=== PATIENT | female | born 1955 | race Caucasian/White ===

== ENCOUNTER 2017-02-09 09:21 | Emergency (ER) | payer OTHER ==
[2017-02-09 09:57] VITALS: BP 155/79
--- NOTE | 2017-02-09 10:28 | UC ---
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 mild swelling over the rigth 5th metatarsal, otherwise no deformity, hard to ambulate or drive. - History of Current Complaint Chief Complaint: UCLowerExtremity Stated Complaint: RT FOOT/LEG PAIN Time Seen by Provider: 02/09/17 10:10 Hx Obtained From: Patient ?: No Onset/Duration: Sudden Onset, Lasting Weeks Severity Initially: Moderate Severity Currently: Severe Aggravating Factor(s): Standing, Ambulation Alleviating Factor(s): Rest Able to Bear Weight: Yes - gait is abnormal - Risk Factors Gout Risk Factors: Negative DVT Risk Factors: Negative - Allergies/Home Medications Allergies/Adverse Reactions: Allergies Allergy/AdvReac Type Severity Reaction Status Date / Time Albuterol Allergy Severe Anaphylatic Verified 02/09/17 09:45 Shock Codeine Allergy Severe Anaphylatic Verified 02/09/17 09:45 Shock Home Medications: Home Medications Aspirin [Aspirin 81 MG TAB] 81 mg PO DAILY 02/09/17 [History Confirmed 02/09/17] Fluticas/Salmet 230/21 HFA(NF) [Advair HFA 23O/21 (NF)] 2 puff INH DAILY [History Confirmed 02/09/17] Ibuprofen TAB* [Advil TAB*] 200 mg PO Q6H PRN 02/09/17 [History Confirmed ] Smoking Cessation Pill 1 tab PO DAILY 02/09/17 [History] PMH/Surg Hx/FS Hx/Imm Hx Previously Healthy: Yes Cardiovascular History Of: Reports: Cardiac Disorders - [facility] Respiratory History Of: Reports: Asthma - Surgical History Surgical History: Yes Surgery Procedure, Year, and Place: TUBAL LIGATION - Family History Known Family History: Positive: Hypertension - Social History Alcohol Use: Rare Substance Use Type: None Smoking Status (MU): Heavy Every Day Tobacco Smoker Type: Cigarettes Amount Used/How Often: 1/2 PPD Household Exposure Type: Cigarettes Review of Systems Constitutional: Negative Skin: Negative Eyes: Negative ENT: Negative Respiratory: Negative Cardiovascular: Negative Gastrointestinal: Negative Genitourinary: Negative Motor: Negative Neurovascular: Negative Musculoskeletal: Arthralgia, Decreased ROM, Edema, Myalgia Neurological: Negative Psychological: Negative All Other Systems Reviewed And Are Negative: Yes Physical Exam Triage Information Reviewed: Yes Appearance: Well-Appearing, Well-Nourished, Pain Distress Vital Signs: Initial Vital Signs Temp 99 F 02/09/17 09:47 Pulse 71 02/09/17 09:47 Resp 18 02/09/17 09:47 BP 155/79 02/09/17 09:47 Pulse Ox 96 02/09/17 09:47 Vital Signs Reviewed: Yes Eye Exam: Normal Eyes: Positive: Conjunctiva Clear ENT: Positive: Hearing grossly normal, Pharynx normal, TMs normal Dental Exam: Normal Neck exam: Normal Neck: Positive: Supple, Nontender, No Lymphadenopathy Respiratory Exam: Normal Respiratory: Positive: Chest non-tender, Lungs clear, Normal breath sounds Cardiovascular Exam: Normal Cardiovascular: Positive: RRR, No Murmur, Pulses Normal Abdominal Exam: Normal Abdomen Description: Positive: Nontender, No Organomegaly, Soft Bowel Sounds: Positive: Present Musculoskeletal: Positive: Strength Limited @ - in weight bearing on right ankle ROM is limited in all directions in right ankle. mild edema at proximal end of 5th metatarsal Neurological Exam: Normal Psychological Exam: Normal Skin Exam: Normal Lower Extremity Course/Dx - Course Course Of Treatment: hx obtained, exam performed, meds reviewed, xray obtained, - Differential Dx/Diagnosis Differential Diagnosis/HQI/PQRI: Bursitis, Cellulitis, Contusion, Dislocation, Sprain, Strain, Tendonitis Provider Diagnoses: right peroneal strain. right ankle pain Discharge - Discharge Plan Condition: Stable Disposition: HOME Patient Education Materials: Muscle Strain (ED) Forms: *Work Release Referrals: NIGHAT Zhou [Primary Care Provider] - Additional Instructions: 1. give your ankle a good rest for the next 25 hours. 2. use the marissa and splint for support. soak foot and leg 2-3 times daily or use a heating pad, then being mild stretching in the pain free range of motion. 3. Follow up if not improving. 4. Advil for reduction of inflammation
--- NOTE | 2017-02-09 10:59 | RAD ---
INDICATION: Lateral ankle pain COMPARISON: None TECHNIQUE: AP, lateral, and oblique views were obtained. FINDINGS: The bony structures, joint spaces, and soft tissues are normal for age. IMPRESSION: NEGATIVE EXAMINATION.
== END 2017-02-09 11:17 | disposition home or self-care (01) ==
LOC: UCCORT 09:21
DX: S96.911A Strain of unspecified muscle and tendon at ankle and foot level, right foot, initial encounter (principal); X58.XXXA Exposure to other specified factors, initial encounter; Y93.9 Activity, unspecified; Y92.9 Unspecified place or not applicable; M25.571 Pain in right ankle and joints of right foot; R01.1 Cardiac murmur, unspecified; J45.909 Unspecified asthma, uncomplicated; Z88.5 Allergy status to narcotic agent; Z88.8 Allergy status to other drugs, medicaments and biological substances; F17.210 Nicotine dependence, cigarettes, uncomplicated
CPT/HCPCS: 99203; G0463

== ENCOUNTER 2017-05-04 12:28 | Emergency (ER) | payer BC, MEDICARE ==
[2017-05-04 12:41] VITALS: BP 130/109
--- NOTE | 2017-05-04 12:49 | UC ---
Abdominal Pain Female HPI - HPI Summary HPI Summary: 61 yo female with a three day hx of rlq abd pain n/v anorexia mild back pain no fever some light headedness some blood in emesis hx kidney stone right side MAR admitted to [facility] hx BTL - History of Current Complaint Chief Complaint: UCAbdominalPain Stated Complaint: LOWER ABDOMINAL/SIDE PAIN VOMITING BLOOD DIZZY Time Seen by Provider: 05/04/17 12:35 Onset/Duration: Gradual Onset, Lasting Days Timing: Constant Severity Initially: Severe Severity Currently: Severe Pain Intensity: 10 Pain Scale Used: 0-10 Numeric Location: Discrete At: RLQ Radiates: No Character: Sharp Aggravating Factor(s): Food, Movement Alleviating Factor(s): Nothing Associated Signs and Symptoms: Positive: Diaphoresis, Back Pain, Decreased Appetite, Nausea, Vomiting Allergies/Adverse Reactions: Allergies Allergy/AdvReac Type Severity Reaction Status Date / Time Albuterol Allergy Severe Anaphylatic Verified 05/04/17 12:42 Shock Codeine Allergy Severe Anaphylatic Verified 05/04/17 12:42 Shock PMH/Surg Hx/FS Hx/Imm Hx Previously Healthy: Yes Respiratory History: COPD, Asthma GI/ History: Kidney Stones - Surgical History Surgical History: Yes Surgery Procedure, Year, and Place: TUBAL LIGATION - Family History Known Family History: Positive: Hypertension - Social History Alcohol Use: Rare Substance Use Type: None Smoking Status (MU): Heavy Every Day Tobacco Smoker Type: Cigarettes Amount Used/How Often: 1ppd Length of Time of Smoking/Using Tobacco: since age 42 Household Exposure Type: Cigarettes Review of Systems Constitutional: Negative Skin: Negative Eyes: Negative ENT: Negative Respiratory: Negative Cardiovascular: Negative Gastrointestinal: Abdominal Pain, Vomiting, Nausea Genitourinary: Negative Motor: Negative Neurovascular: Negative Musculoskeletal: Negative Neurological: Negative Psychological: Negative All Other Systems Reviewed And Are Negative: Yes Physical Exam Triage Information Reviewed: Yes Appearance: Well-Appearing, Well-Nourished, Pain Distress Vital Signs: Initial Vital Signs Temp 99.3 F 05/04/17 12:37 Pulse 89 05/04/17 12:37 Resp 20 05/04/17 12:37 BP 130/109 05/04/17 12:37 Pulse Ox 95 05/04/17 12:37 Vital Signs Reviewed: Yes Eyes: Positive: Conjunctiva Clear ENT: Positive: Hearing grossly normal. Negative: Nasal congestion, Nasal drainage, Tonsillar exudate, Trismus, Muffled/hoarse voice Neck: Positive: Supple, Nontender, No Lymphadenopathy Respiratory: Positive: Lungs clear, Normal breath sounds, No respiratory distress, No accessory muscle use Cardiovascular: Positive: RRR Abdomen Description: Positive: Soft, CVA Tenderness (R) - minimal. Negative: Nontender - markedley tender RLQ>RUQ Bowel Sounds: Positive: Hypoactive Musculoskeletal: Positive: ROM Intact, No Edema Neurological: Positive: Alert Psychological Exam: Normal Skin Exam: Normal Abd Pain Female Course/Dx - Course Course Of Treatment: DECLINES IV ANALAGESIC AND ANTIEMETIC WELL EMS TRANSFER. desires to go to [facility] by POV. d/w Dr Gu - Differential Dx/Diagnosis Provider Diagnoses: Abd pain of uncertain cause. hematemesis by history Discharge - Discharge Plan Condition: Guarded Disposition: AGAINST MEDICAL ADVICE
== END 2017-05-04 13:04 | disposition left against medical advice (07) ==
LOC: UCCORT 12:28
DX: R10.31 Right lower quadrant pain (principal); K92.0 Hematemesis; R42 Dizziness and giddiness; Z87.442 Personal history of urinary calculi; J44.9 Chronic obstructive pulmonary disease, unspecified; Z88.5 Allergy status to narcotic agent; F17.210 Nicotine dependence, cigarettes, uncomplicated
CPT/HCPCS: 99212; G0463

== ENCOUNTER 2017-09-23 11:21 | Emergency (ER) | payer BC, MEDICARE ==
[2017-09-23 12:00] VITALS: BP 156/91
--- NOTE | 2017-09-23 12:47 | UC ---
Throat Pain/Nasal Fabián HPI - HPI Summary HPI Summary: SINUS PRESSURE PAIN, WHEEZING, AND COUGH FOR TWO WEEK. NO FEVER. HAD BEEN AUGMENTIN A MONTH AGO, SYMPTOMS RETURNED. - History of Current Complaint Chief Complaint: UCRespiratory Stated Complaint: COUGH,CONGESTION,EAR PAIN,ST Time Seen by Provider: 09/23/17 12:00 Hx Obtained From: Patient Onset/Duration: Gradual Onset, Lasting Weeks Severity: Moderate Pain Intensity: 8 Pain Scale Used: 0-10 Numeric Cough: Nonproductive Associated Signs & Symptoms: Positive: Hoarseness, Sinus Discomfort, Nasal Discharge - Epiglottits Risk Factors Epiglottis Risk Factors: Negative - Allergies/Home Medications Allergies/Adverse Reactions: Allergies Allergy/AdvReac Type Severity Reaction Status Date / Time Albuterol Allergy Severe Anaphylatic Verified 09/23/17 11:46 Shock Codeine Allergy Severe Anaphylatic Verified 09/23/17 11:46 Shock Benzonatate [From Tessalon] Allergy Unknown NAUSEA, Verified 09/23/17 11:49 SHAKEY , DIZZY Home Medications: Home Medications Otc Cough Med PRN 09/23/17 [History] PMH/Surg Hx/FS Hx/Imm Hx Previously Healthy: Yes - Surgical History Surgical History: Yes Surgery Procedure, Year, and Place: TUBAL LIGATION. CYST REMOVED FROM LEFT ARM - Family History Known Family History: Positive: Hypertension, Respiratory Disease - Social History Occupation: Employed Full-time Lives: With Family Alcohol Use: None Substance Use Type: None Smoking Status (MU): Heavy Every Day Tobacco Smoker Type: Cigarettes Amount Used/How Often: 1/2 PPD Length of Time of Smoking/Using Tobacco: since age 42 Household Exposure Type: Cigarettes Cessation Counseling: Patient Advised to Stop - Immunization History Most Recent Influenza Vaccination: 2017 Review of Systems Constitutional: Fatigue Skin: Negative ENT: Nasal Discharge, Sinus Congestion, Sinus Pain/Tenderness Respiratory: Cough Cardiovascular: Negative Gastrointestinal: Negative Genitourinary: Negative Motor: Negative Neurovascular: Negative Musculoskeletal: Negative Neurological: Negative Psychological: Negative Is Patient Immunocompromised?: No All Other Systems Reviewed And Are Negative: Yes Physical Exam Triage Information Reviewed: Yes Appearance: No Pain Distress, Well-Nourished, Ill-Appearing Vital Signs: Initial Vital Signs Temp 98.7 F 09/23/17 11:49 Pulse 75 09/23/17 11:49 Resp 20 09/23/17 11:49 BP 156/91 09/23/17 11:49 Pulse Ox 100 09/23/17 11:49 Vital Signs Reviewed: Yes Eye Exam: Normal ENT: Positive: Pharynx normal, Nasal congestion, Nasal drainage, TM bulging, TM dull Dental Exam: Normal Neck exam: Normal Neck: Positive: Supple, Nontender, No Lymphadenopathy Respiratory Exam: Other - COUGH Respiratory: Positive: Chest non-tender, Lungs clear, Normal breath sounds, No respiratory distress, No accessory muscle use Cardiovascular Exam: Normal Cardiovascular: Positive: RRR, No Murmur, Pulses Normal Abdominal Exam: Normal Musculoskeletal Exam: Normal Musculoskeletal: Positive: Strength Intact, ROM Intact Neurological Exam: Normal Psychological Exam: Normal Skin Exam: Normal Throat Pain/Nasal Course/Dx - Differential Dx/Diagnosis Differential Diagnosis/HQI/PQRI: Pharyngitis, Sinusitis, Tonsillitis, URI Provider Diagnoses: SINUSITIS; BRONCHITIS Discharge - Discharge Plan Condition: Stable Disposition: HOME Prescriptions: DOXYcycline CAP(*) [DOXYcycline 100MG CAP(*)] 100 mg PO BID #20 cap Patient Education Materials: Sinusitis (ED), Acute Bronchitis (ED) Forms: *Work Release Referrals: NIGHAT Zhou [Primary Care Provider] - Additional Instructions: IF SYMPTOMS WORSEN PLEASE SEEK IMMEDIATE EVALUATION AT EMERGENCY DEPARTMENT. PLEASE SCHEDULE A FOLLOW UP APPOINTMENT WITH YOUR PRIMARY CARE PROVIDER FOR NEXT WEEK.
== END 2017-09-23 12:27 | disposition home or self-care (01) ==
LOC: UCCORT 11:21
DX: J32.9 Chronic sinusitis, unspecified (principal); J40 Bronchitis, not specified as acute or chronic; Z88.8 Allergy status to other drugs, medicaments and biological substances; F17.210 Nicotine dependence, cigarettes, uncomplicated
CPT/HCPCS: 99212; G0463

== ENCOUNTER 2018-12-25 15:59 | Emergency (ER) | payer OTHER ==
[2018-12-25 16:47] VITALS: BP 144/83
[2018-12-25] MEDS ORDERED: Ketorolac INJ* 30 MG/ML 1 ML VIAL IM ONE (16:55)
--- NOTE | 2018-12-25 17:07 | UC ---
Hip/Pelvis Pain - HPI Summary HPI Summary: 63 yo female with left hip pain x 2 weeks pain localized over greater troch radiates down leg to knee sometime goes down to foot no back or abd pain hurts to walk hurts to lay on left side no f/c no CP or SOB states the pain has been so severe the past 2 days she has had a headache and vomited no nausea - History Of Current Complaint Chief Complaint: UCLowerExtremity Stated Complaint: LEFT LEG CONCERN,VOMITING,HEADACHE Time Seen by Provider: 12/25/18 16:49 Hx Obtained From: Patient Onset/Duration: Gradual Onset, Lasting Weeks, Worse Since - past two days Timing: Constant Severity Initially: Mild Severity Currently: Severe Pain Intensity: 10 Pain Scale Used: 0-10 Numeric Location: Discrete At: - left great troch, Radiates To: - down lat left leg to knee or foot Character Of Pain: Aching, Throbbing, Spasmodic Aggravating Factor(s): Movement, Weight Bearing, Other - laying on left side Alleviating Factor(s): Nothing Associated Signs And Symptoms: Positive: Swelling - at times - Allergies/Home Medications Allergies/Adverse Reactions: Allergies Allergy/AdvReac Type Severity Reaction Status Date / Time albuterol Allergy Anaphylatic Verified 12/25/18 16:38 Shock benzonatate Allergy Nausea, Verified 12/25/18 16:38 shaky, dizzy codeine Allergy Anaphylatic Verified 12/25/18 16:38 Shock PMH/Surg Hx/FS Hx/Imm Hx Previously Healthy: Yes Cardiovascular History: Hypertension - current not on meds Respiratory History: Asthma GI/ History: Kidney Stones - Surgical History Surgical History: Yes Surgery Procedure, Year, and Place: TUBAL LIGATION. CYST REMOVED FROM LEFT ARM - Family History Known Family History: Positive: Hypertension, Respiratory Disease - Social History Alcohol Use: None Substance Use Type: None Smoking Status (MU): Heavy Every Day Tobacco Smoker Type: Cigarettes Amount Used/How Often: 1 Pack per wk Length of Time of Smoking/Using Tobacco: since age 42 Household Exposure Type: Cigarettes - Immunization History Most Recent Influenza Vaccination: 2017 Review of Systems All Other Systems Reviewed And Are Negative: Yes Constitutional: Positive: Negative Skin: Positive: Negative Eyes: Positive: Negative ENT: Positive: Negative Respiratory: Positive: Negative Cardiovascular: Positive: Negative Gastrointestinal: Positive: Vomiting Genitourinary: Positive: Negative Motor: Positive: Negative Neurovascular: Positive: Negative Musculoskeletal: Positive: Arthralgia - left hip Neurological: Positive: Headache Physical Exam Triage Information Reviewed: Yes Appearance: Well-Appearing, No Pain Distress, Well-Nourished Vital Signs: Initial Vital Signs Temp 99.1 F 12/25/18 16:40 Pulse 84 12/25/18 16:40 Resp 16 12/25/18 16:40 BP 144/83 12/25/18 16:40 Pulse Ox 96 12/25/18 16:40 Vital Signs Reviewed: Yes Eyes: Positive: Conjunctiva Clear ENT: Positive: Hearing grossly normal. Negative: Nasal congestion, Nasal drainage, Trismus, Muffled voice, Hoarse voice Neck: Positive: Supple, Nontender, No Lymphadenopathy Respiratory: Positive: Lungs clear, Normal breath sounds, No respiratory distress, No accessory muscle use Cardiovascular: Positive: RRR Abdomen Description: Positive: No Organomegaly. Negative: Bruit, CVA Tenderness (R), CVA Tenderness (L), Distended, Guarding, Hernia @ Bowel Sounds: Positive: Present Musculoskeletal: Positive: ROM Intact, No Edema Neurological: Positive: Alert Psychological Exam: Normal Skin Exam: Normal Diagnostics - Radiology No standard instances Radiology Interpretation Completed By: Radiologist Summary of Radiographic Findings: IMPRESSION: MODERATE TO SEVERE DEGENERATIVE DISC DISEASE AT THE L5-S1 LEVEL. hip ok Hip Injury Course/Dx - Differential Dx/Diagnosis Provider Diagnosis: Left sided sciatica, DDD (degenerative disc disease), lumbosacral Discharge - Sign-Out/Discharge Documenting (check all that apply): Patient Departure All imaging exams completed and their final reports reviewed: No Studies - Discharge Plan Condition: Stable Disposition: HOME Prescriptions: Naproxen [Naprosyn 500 mg tab] 500 mg PO BID PRN #30 tablet PRN Reason: Pain Referrals: No Primary Care Phys,NOPCP [Primary Care Provider] - - Billing Disposition and Condition Condition: STABLE Disposition: Home
== END 2018-12-25 18:28 | disposition home or self-care (01) ==
LOC: UCCORT 15:59
DX: M51.37 Other intervertebral disc degeneration, lumbosacral region (principal); M54.32 Sciatica, left side; R51 Headache; R11.10 Vomiting, unspecified; J45.909 Unspecified asthma, uncomplicated; I10 Essential (primary) hypertension; F17.210 Nicotine dependence, cigarettes, uncomplicated; Z88.8 Allergy status to other drugs, medicaments and biological substances; Z88.5 Allergy status to narcotic agent
CPT/HCPCS: 72110; 96372; 99212; G0463; J1885

== ENCOUNTER 2019-05-25 16:27 | Emergency (ER) | payer OTHER ==
--- OUTSIDE RECORDS SUMMARY | 2019-05-25 16:50 | XMS REPORT | Continuity of Care Document ---
:1955 External Reference #:[id number] Author Name Christian Colón M.D. 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 Onset: 03/07/2019 Essential hypertension Pinky Storey M.D. Onset: 03/07/2019 Perforation and abscess of large intestine Pinky Storey M.D. Onset: 2018 co-occurrent and due to diverticulitis Extended spectrum beta lactamase (Esbl) Pinky Storey M.D. Onset: 03/07/2019 resistance Tobacco user Pinky Storey M.D. Onset: 03/07/2019 Constipation Pinky Storey M.D. Onset: 03/14/2019 Chronic obstructive lung disease Pinky Storey M.D. Onset: 04/18/2019 Dysphagia Pinky Storey M.D. Onset: 04/18/2019 Hemangioma Pinky Storey M.D. 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 [facility] Work Status Currently Working Tobacco Use Start: Unknown currently smokes 1/2 Smoked for 30 years Pack Daily plus Smokeless Tobacco Never Used Smokeless Tobacco ETOH Use Has consumed alcohol in [place] 16 years ago the past Recreational Drug Use Denies Drug Use Tobacco Use Start: Unknown Light tobacco smoker (10 or fewer cigarettes/day) Tobacco Use Start: Unknown Patient is a current smoker, smokes every day Smoking Status Reviewed: 05/09/19 Patient is a current smoker, smokes every day Allergies, Adverse Reactions, Alerts Active Allergies Reaction Severity Comments Date Codeine 11/30/2016 Albendazole 11/30/2016 Albuterol "I can't breath" 02/19/2019 Medications Active Medications SIG Qnty Indications Ordering Date Provider Sensurekha Vazquez Take 1 tab PO once 30tabs K59.00 Pinky Storey, 03/14/2019 8.6-50mg daily prn M.D. Tablets constipation. Amlodipine Besylate 1 by mouth every Unknown day 5mg Tablets Spiriva Respimat take 2 puffs, prn 4gm Unknown 2.5mcg/Act Aerosol Eliquis Take 2 Tablets By Unknown 5mg Tablets Mouth Twice Daily For 7 Days Then 1 Tablet Twice Daily For 2 Months Until Seen By Hematology Metamucil Fiber 2 by mouth daily Unknown 51.7% Packet History Medications Bisacodyl Ec 4 tabs by mouth 4tabs [place], 03/29/2019 - 5mg once 630 evening Christian López, 05/07/[address] before colonoscopy M.Schuyler Magnesium Citrate 1 bottle by mouth 296ml [place]on, 03/29/2019 - x one as directed Christian López, 05/07/2019 1.745GM/30ML M.D. Solution Diflucan 1 po qday 14tabs [place], 02/23/2019 - 200mg Christian López, 03/07/2019 Tablets M.DAngelo Ventolin HFA take 2 puffs every 8gm J44.9 Kheti, Yung, MD 02/07/2019 - 6 hours as needed 02/19/2019 108(90Base) mcg/Act for shortness of Aerosol breath. Golytely drink half the 4000ml Z12.11 Erickson Snyder MD 05/13/2017 - 236gm evening before and 02/01/2019 Solution Rec half the morning of the procedure (1 cup every 10') Dulcolax 4 tablets taken a 4tabs Z12.11 Erickson Snyder MD 05/13/2017 - 5mg Tablets 8pm the day before 02/01/2019 DR the procedure Magnesium Citrate 1 bottle po x one 296ml Z12.11 Erickson Snyder MD 05/13/2017 - as directed 02/01/2019 1.745GM/30ML Solution Pantoprazole Sodium 1 by mouth every 90tabs K29.80 Erickson Snyder MD 2016 - day every morning 02/01/2019 40mg Tablets Advair Diskus use 1 breath twice 60units Tom Colindres 11/30/2016 - a day Pedro Huang, [facility] 02/01/2019 250-50mcg/Dose Aerosol Spiriva Handihaler 1 inhalation every 30caps Tom Colindres 11/30/2016 - day Pedro Huang, [facility] 02/07/2019 18mcg Capsules Aspirin Low Dose chew 1 tablet by Unknown - 81mg mouth daily 03/07/2019 Chewtabs Pantoprazole Sodium 1 by mouth every Unknown - day Unknown 40mg Solution Rec Metronidazole 1 by mouth three Unknown - 500mg times a day 02/01/2019 Tablets Cefdinir every 12hrs,oral Unknown - 300mg Unknown Capsules Metronidazole Unknown - 500mg 02/01/2019 Tablets Oseltamivir Unknown - Phosphate 02/01/2019 75mg Capsules Stiolto Respimat Unknown - 02/01/2019 2.5-2.5mcg/Act Aerosol Nicotine transdermal,daily Unknown - 21mg/24HR 03/07/2019 Patches 24HR Benzonatate 3 times a day, prn Unknown - 100mg Unknown Capsules Famotidine 1 by mouth twice a Unknown - 20mg day Unknown Tablets Cepacol Sore Throat Unknown - Extra Strength 03/07/2019 15-3.6mg Lozenges Acidophilus Extra 1 by mouth every Unknown - Strength day 03/07/2019 Capsules Ertapenem Sodium give 1gm iv x 1 Unknown - 1gm dose 05/09/2019 Solution Rec Vital Signs Date Vital Result Comment 05/09/2019 3:42pm BP Systolic Sitting Right Arm 139 mmHg BP Diastolic Sitting Right Arm 86 mmHg Body Temperature 96.5 F Heart Rate 72 /min 05/07/2019 8:48am BP Systolic 154 mmHg BP Diastolic 86 mmHg Heart Rate 81 /min Height 64 inches 5'4" [place] body weight in kilograms 54 kg O2 % BldC Oximetry 98 % 05/07/2019 8:47am Height 64 inches 5'4" Weight 187.00 lb BMI (Body Mass Index) 32.1 kg/m2 BSA (Body Surface Area) 1.90 m2 [place] body weight in kilograms 54 kg 04/18/2019 3:26pm BP Systolic Sitting Right Arm 144 mmHg BP Diastolic Sitting Right Arm 85 mmHg Body Temperature 95.6 F Heart Rate 55 /min Height 64 inches 5'4" Weight 191.00 lb BMI (Body Mass Index) 32.8 kg/m2 BSA (Body Surface Area) 1.92 m2 [place] body weight in kilograms 54 kg 04/09/2019 1:39pm BP Systolic Sitting Left Arm 130 mmHg BP Diastolic Sitting Left Arm 80 mmHg Heart Rate 94 /min Respiratory Rate 18 /min Height 64 inches 5'4" Weight 190.00 lb BMI (Body Mass Index) 32.6 kg/m2 BSA (Body Surface Area) 1.91 m2 [place] body weight in kilograms 54 kg O2 % BldC Oximetry 95 % 03/28/2019 3:11pm BP Systolic Sitting Right Arm 141 mmHg BP Diastolic Sitting Right Arm 84 mmHg Body Temperature 95.0 F Heart Rate 65 /min Height 64 inches 5'4" Weight 193.00 lb BMI (Body Mass Index) 33.1 kg/m2 BSA (Body Surface Area) 1.93 m2 [place] body weight in kilograms 54 kg 03/21/2019 2:17pm BP Systolic 118 mmHg BP Diastolic 80 mmHg Height 64 inches 5'4" Weight 191.00 lb BMI (Body Mass Index) 32.8 kg/m2 BSA (Body Surface Area) 1.92 m2 [place] body weight in kilograms 54 kg 03/14/2019 2:26pm BP Systolic Sitting Right Arm 123 mmHg BP Diastolic Sitting Right Arm 84 mmHg Heart Rate 85 /min Height 64 inches 5'4" Weight 192.00 lb BMI (Body Mass Index) 33.0 kg/m2 BSA (Body Surface Area) 1.92 m2 [place] body weight in kilograms 54 kg 03/07/2019 1:09pm BP Systolic Sitting Right Arm 132 mmHg wrist BP Diastolic Sitting Right Arm 85 mmHg wrist Body Temperature 98.7 F Heart Rate 92 /min Height 64 inches 5'4" Weight 188.00 lb BMI (Body Mass Index) 32.3 kg/m2 BSA (Body Surface Area) 1.91 m2 [place] body weight in kilograms 54 kg 03/07/2019 9:36am BP Systolic 136 mmHg BP Diastolic 90 mmHg Height 64 inches 5'4" Weight 189.00 lb BMI (Body Mass Index) 32.4 kg/m2 BSA (Body Surface Area) 1.91 m2 [place] body weight in kilograms 54 kg 02/14/2019 3:15pm BP Systolic 176 mmHg BP Diastolic 95 mmHg Body Temperature 98.4 F Heart Rate 105 /min Respiratory Rate 22 /min Height 64 inches 5'4" [place] body weight in kilograms 54 kg O2 % BldC Oximetry 93 % 02/07/2019 3:09pm BP Systolic Sitting Left Arm 137 mmHg BP Diastolic Sitting Left Arm 80 mmHg Heart Rate 75 /min Respiratory Rate 16 /min Height 64 inches 5'4" Weight 191.00 lb BMI (Body Mass Index) 32.8 kg/m2 BSA (Body Surface Area) 1.92 m2 [place] body weight in kilograms 54 kg O2 Saturation Level with Exercise 94 % 02/01/2019 8:05am BP Systolic 137 mmHg BP Diastolic 80 mmHg Heart Rate 76 /min Height 64 inches 5'4" Weight 189.25 lb BMI (Body Mass Index) 32.5 kg/m2 BSA (Body Surface Area) 1.91 m2 [place] body weight in kilograms 54 kg O2 % BldC Oximetry 96 % 05/13/2017 3:07pm BP Systolic Sitting Resting Right Arm 138 mmHg BP Diastolic Sitting Resting Right Arm 88 mmHg Heart Rate 75 /min Respiratory Rate 16 /min Height 64 inches 5'4" Weight 178.00 lb BMI (Body Mass Index) 30.6 kg/m2 BSA (Body Surface Area) 1.86 m2 [place] body weight in kilograms 54 kg Results Test Date Facility Test Result H/L Range Note CBC 04/23/2019 [facility] White Blood Count 5.6 K/uL Normal 3.1-10.7 1 [address] [place] [address] [phone] Red Blood Count 4.15 M/uL Normal 3.90-5.40 Hemoglobin 12.1 gm/dL Normal 11.6-15.8 Hematocrit 36.9 % Normal 36.0-46.1 Mean Cell Volume 88.9 fl Normal 80.9-99.0 Mean Corpuscular HGB 29.2 pg Normal 25.9-32.7 Mean Corpuscular HGB Conc 32.8 g/dL Normal 30.8-34.3 Platelet Count 184 K/uL Normal 155-360 Red Cell Distri Width SD 45.1 fl Normal 36-47 Red Cell Distri Width %CV 14.0 % Normal 11.7-14.4 Mean Platelet Volume 10.2 fl Normal 8.9-12.4 NRBC % 0.0 /100WBC < 10/ 100 WBC Comprehensive 04/23/2019 [facility] Glucose 94 mg/dL Normal 74-106 Metabolic Panel [address] [place] [address] [phone] BUN 19 mg/dL High 7-18 Creatinine 0.8 mg/dL Normal 0.6-1.3 Glom Filtration Rate, Estimate >60 mL/min >60 If >60 mL/min >60 2 BUN/Creat 23.7 ratio Sodium 142 mmol/L Normal 136-145 Potassium 3.7 mmol/L Normal 3.5-5.1 Chloride 110 mmol/L High 98-107 Carbon Dioxide 27 mmol/L Normal 21-32 Anion Gap 5 mEq/L Low 8-16 Calcium 8.6 mg/dL Normal 8.5-10.1 Total Protein 6.8 g/dL Normal 6.4-8.2 Albumin 3.1 g/dL Low 3.4-5.0 Globulin 3.7 g/dL Normal 1.9-4.3 Alb/Glob 0.8 ratio Bilirubin,Total 0.2 mg/dL Normal 0.2-1.0 Sgot/Ast 16 U/L Normal 15-37 SGPT/Alt 21 U/L Normal 12-78 Alkaline Phosphatase 195 U/L High 45-117 Laboratory 04/23/2019 [facility] C-Reactive 4.9 mg/L High <3.0 test finding [address], [place] [id number] [phone] CBC 04/16/2019 [facility] White Blood Count 5.4 K/uL Normal 3.1-10.7 3 [address] [place], [place] [id number] [phone] Red Blood Count 4.15 M/uL Normal 3.90-5.40 Hemoglobin 12.2 gm/dL Normal 11.6-15.8 Hematocrit 36.6 % Normal 36.0-46.1 Mean Cell Volume 88.2 fl Normal 80.9-99.0 Mean Corpuscular HGB 29.4 pg Normal 25.9-32.7 Mean Corpuscular HGB Conc 33.3 g/dL Normal 30.8-34.3 Platelet Count 200 K/uL Normal 155-360 Red Cell Distri Width SD 45.4 fl Normal 36-47 Red Cell Distri Width %CV 14.0 % Normal 11.7-14.4 Mean Platelet Volume 10.0 fl Normal 8.9-12.4 NRBC % 0.0 /100WBC < 10/ 100 WBC Comprehensive Metabolic 04/16/2019 [facility] Glucose 125 mg/dL High 74-106 Panel [address] [place] [address] [phone] BUN 16 mg/dL Normal 7-18 Creatinine 0.8 mg/dL Normal 0.6-1.3 Glom Filtration Rate, Estimate >60 mL/min >60 If >60 mL/min >60 4 BUN/Creat 20.0 ratio Sodium 141 mmol/L Normal 136-145 Potassium 3.7 mmol/L Normal 3.5-5.1 Chloride 108 mmol/L High 98-107 Carbon Dioxide 27 mmol/L Normal 21-32 Anion Gap 6 mEq/L Low 8-16 Calcium 8.8 mg/dL Normal 8.5-10.1 Total Protein 6.8 g/dL Normal 6.4-8.2 Albumin 3.2 g/dL Low 3.4-5.0 Globulin 3.6 g/dL Normal 1.9-4.3 Alb/Glob 0.9 ratio Bilirubin,Total 0.2 mg/dL Normal 0.2-1.0 Sgot/Ast 18 U/L Normal 15-37 SGPT/Alt 21 U/L Normal 12-78 Alkaline Phosphatase 199 U/L High 45-117 Laboratory 04/16/2019 [facility] C-Reactive 4.2 mg/L High <3.0 test finding [address],[place], [place] [id number] [phone] Laboratory 04/09/2019 [facility] C-Reactive 5.2 mg/L High <3.0 5 test finding [address],[place] [address] [phone] CBC 04/09/2019 [facility] White Blood Count 5.3 K/uL Normal 3.1-10.7 [address] [place] [address] [phone] Red Blood Count 4.13 M/uL Normal 3.90-5.40 Hemoglobin 12.0 gm/dL Normal 11.6-15.8 Hematocrit 36.5 % Normal 36.0-46.1 Mean Cell Volume 88.4 fl Normal 80.9-99.0 Mean Corpuscular HGB 29.1 pg Normal 25.9-32.7 Mean Corpuscular HGB Conc 32.9 g/dL Normal 30.8-34.3 Platelet Count 203 K/uL Normal 155-360 Red Cell Distri Width SD 46.1 fl Normal 36-47 Red Cell Distri Width %CV 14.3 % Normal 11.7-14.4 Mean Platelet Volume 9.6 fl Normal 8.9-12.4 NRBC % 0.0 /100WBC < 10/ 100 WBC Comprehensive Metabolic 04/09/2019 [facility] Glucose 118 mg/dL High 74-106 Panel [address] [place] [address] [phone] BUN 16 mg/dL Normal 7-18 Creatinine 0.9 mg/dL Normal 0.6-1.3 Glom Filtration Rate, Estimate >60 mL/min >60 If >60 mL/min >60 6 BUN/Creat 17.7 ratio Sodium 140 mmol/L Normal 136-145 Potassium 3.6 mmol/L Normal 3.5-5.1 Chloride 108 mmol/L High 98-107 Carbon Dioxide 27 mmol/L Normal 21-32 Anion Gap 5 mEq/L Low 8-16 Calcium 8.8 mg/dL Normal 8.5-10.1 Total Protein 6.9 g/dL Normal 6.4-8.2 Albumin 3.2 g/dL Low 3.4-5.0 Globulin 3.7 g/dL Normal 1.9-4.3 Alb/Glob 0.9 ratio Bilirubin,Total 0.2 mg/dL Normal 0.2-1.0 Sgot/Ast 16 U/L Normal 15-37 SGPT/Alt 23 U/L Normal 12-78 Alkaline Phosphatase 212 U/L High 45-117 Laboratory 04/02/2019 [facility] C-Reactive 7.2 mg/L High <3.0 7 test finding 134 [facility],[place] [address] [phone] CBC 04/02/2019 [facility] White Blood Count 5.3 K/uL Normal 3.1-10.7 [address] [place] [address] [phone] Red Blood Count 4.17 M/uL Normal 3.90-5.40 Hemoglobin 12.3 gm/dL Normal 11.6-15.8 Hematocrit 37.0 % Normal 36.0-46.1 Mean Cell Volume 88.7 fl Normal 80.9-99.0 Mean Corpuscular HGB 29.5 pg Normal 25.9-32.7 Mean Corpuscular HGB Conc 33.2 g/dL Normal 30.8-34.3 Platelet Count 197 K/uL Normal 155-360 Red Cell Distri Width SD 46.8 fl Normal 36-47 Red Cell Distri Width %CV 14.6 % High 11.7-14.4 Mean Platelet Volume 10.0 fl Normal 8.9-12.4 NRBC % 0.0 /100WBC < 10/ 100 WBC Comprehensive 04/02/2019 [facility] Glucose 101 mg/dL Normal 74-106 Metabolic Panel [address] [place] [address] [phone] BUN 19 mg/dL High 7-18 Creatinine 0.8 mg/dL Normal 0.6-1.3 Glom Filtration Rate, Estimate >60 mL/min >60 If >60 mL/min >60 8 BUN/Creat 23.7 ratio Sodium 140 mmol/L Normal 136-145 Potassium 3.8 mmol/L Normal 3.5-5.1 Chloride 107 mmol/L Normal 98-107 Carbon Dioxide 28 mmol/L Normal 21-32 Anion Gap 5 mEq/L Low 8-16 Calcium 8.9 mg/dL Normal 8.5-10.1 Total Protein 7.0 g/dL Normal 6.4-8.2 Albumin 3.2 g/dL Low 3.4-5.0 Globulin 3.8 g/dL Normal 1.9-4.3 Alb/Glob 0.8 ratio Bilirubin,Total 0.2 mg/dL Normal 0.2-1.0 Sgot/Ast 21 U/L Normal 15-37 SGPT/Alt 42 U/L Normal 12-78 Alkaline Phosphatase 196 U/L High 45-117 CBC 03/26/2019 [facility] White Blood Count 5.3 K/uL Normal 3.1-10.7 [address] [place] [address] [phone] Red Blood Count 4.07 M/uL Normal 3.90-5.40 Hemoglobin 12.0 gm/dL Normal 11.6-15.8 Hematocrit 36.0 % Normal 36.0-46.1 Mean Cell Volume 88.5 fl Normal 80.9-99.0 Mean Corpuscular HGB 29.5 pg Normal 25.9-32.7 Mean Corpuscular HGB Conc 33.3 g/dL Normal 30.8-34.3 Platelet Count 201 K/uL Normal 155-360 Red Cell Distri Width SD 45.3 fl Normal 36-47 Red Cell Distri Width %CV 14.2 % Normal 11.7-14.4 Mean Platelet Volume 9.8 fl Normal 8.9-12.4 NRBC % 0.0 /100WBC < 10/ 100 WBC Comprehensive 03/26/2019 [facility] Glucose 96 mg/dL Normal 74-106 Metabolic Panel [address] [place] [address] [phone] BUN 20 mg/dL High 7-18 Creatinine 0.9 mg/dL 0.6-1.3 Glom Filtration Rate, Estimate >60 mL/min >60 If >60 mL/min >60 9 BUN/Creat 22.2 ratio Sodium 140 mmol/L Normal 136-145 Potassium 3.9 mmol/L 3.5-5.1 Chloride 107 mmol/L Normal 98-107 Carbon Dioxide 27 mmol/L Normal 21-32 Anion Gap 6 mEq/L Low 8-16 Calcium 8.9 mg/dL 8.5-10.1 Total Protein 7.1 g/dL 6.4-8.2 Albumin 3.3 g/dL Low 3.4-5.0 Globulin 3.8 g/dL Normal 1.9-4.3 Alb/Glob 0.9 ratio Bilirubin,Total 0.3 mg/dL Normal 0.2-1.0 Sgot/Ast 13 U/L Low 15-37 10 SGPT/Alt 19 U/L Normal 12-78 Alkaline Phosphatase 187 U/L High 45-117 Laboratory 03/26/2019 [facility] C-Reactive 4.5 mg/L High <3.0 test finding 134 [facility] Protein,[place] [address] [phone] CBC 03/19/2019 [facility] White Blood Count 6.6 K/uL Normal 3.1-10.7 [address], [place] [id number] [phone] Red Blood Count 3.85 M/uL Low 3.90-5.40 Hemoglobin 11.0 gm/dL Low 11.6-15.8 Hematocrit 34.3 % Low 36.0-46.1 Mean Cell Volume 89.1 fl Normal 80.9-99.0 Mean Corpuscular HGB 28.6 pg Normal 25.9-32.7 Mean Corpuscular HGB Conc 32.1 g/dL Normal 30.8-34.3 Platelet Count 214 K/uL Normal 155-360 Red Cell Distri Width SD 45.8 fl Normal 36-47 Red Cell Distri Width %CV 14.2 % Normal 11.7-14.4 Mean Platelet Volume 9.7 fl Normal 8.9-12.4 NRBC % 0.0 /100WBC < 10/ 100 WBC Comprehensive 03/19/2019 [facility] Glucose 83 mg/dL Normal 74-106 Metabolic Panel [address] [place] [address] [phone] BUN 16 mg/dL Normal 7-18 Creatinine 0.7 mg/dL 0.6-1.3 Glom Filtration Rate, Estimate >60 mL/min >60 If >60 mL/min >60 11 BUN/Creat 22.8 ratio Sodium 142 mmol/L Normal 136-145 Potassium 3.2 mmol/L Low 3.5-5.1 Chloride 112 mmol/L High 98-107 Carbon Dioxide 24 mmol/L Normal 21-32 Anion Gap 6 mEq/L Low 8-16 Calcium 7.7 mg/dL Low 8.5-10.1 Total Protein 5.9 g/dL Low 6.4-8.2 Albumin 2.7 g/dL Low 3.4-5.0 Globulin 3.2 g/dL Normal 1.9-4.3 Alb/Glob 0.8 ratio Bilirubin,Total 0.1 mg/dL Low 0.2-1.0 Sgot/Ast 14 U/L Low 15-37 12 SGPT/Alt 16 U/L Normal 12-78 Alkaline Phosphatase 156 U/L High 45-117 Laboratory test 03/19/2019 [facility] C-Reactive 4.3 mg/L High <3.[address],[employer] [place], [place] [id number] [phone] Laboratory test 03/13/2019 [facility] C-Reactive 18.4 High <3.[address] Protein,Quant mg/[place] [address] [phone] Basic Metabolic 03/13/2019 [facility] Glucose 131 High 74-[address] mg/dL [place], [place] [id number] [phone] BUN 18 mg/dL Normal 7-18 Creatinine 1.0 mg/dL Normal 0.6-1.3 Glom Filtration Rate, Estimate 60 mL/min >60 If >60 mL/min >60 13 BUN/Creat 18.0 ratio Sodium 139 mmol/L Normal 136-145 Potassium 3.8 mmol/L Normal 3.5-5.1 Chloride 106 mmol/L Normal 98-107 Carbon Dioxide 27 mmol/L Normal 21-32 Anion Gap 6 mEq/L Low 8-16 Calcium 9.0 mg/dL Normal 8.5-10.1 CBC W/Automated 03/13/2019 [facility] White Blood 7.5 K/uL Normal 3.1-10.[address] [place] [address] [phone] Red Blood Count 3.95 M/uL Normal 3.90-5.40 Hemoglobin 12.0 gm/dL Normal 11.6-15.8 Hematocrit 34.8 % Low 36.0-46.1 Mean Cell Volume 88.1 fl Normal 80.9-99.0 Mean Corpuscular HGB 30.4 pg Normal 25.9-32.7 Mean Corpuscular HGB Conc 34.5 g/dL High 30.8-34.3 Platelet Count 257 K/uL Normal 155-360 Red Cell Distri Width SD 45.3 fl Normal 36-47 Red Cell Distri Width %CV 14.0 % Normal 11.7-14.4 Mean Platelet Volume 10.0 fl Normal 8.9-12.4 Neut% 65.9 % Normal 40.4-72.8 Lymph % 21.8 % Normal 20.0-42.0 [place] % 6.7 % Normal 4.3-13.2 Eo% 4.0 % Normal 0.0-6.6 Bas% 0.8 % Normal 0.0-1.1 Immature Grans 0.8 % Normal 0.0-5.0 NRBC % 0.0 /100WBC < 10/ 100 WBC Neut# 4.95 K/uL Normal 1.8-7.0 Lymph # 1.64 K/uL Normal 1.0-4.0 [place] # 0.50 K/uL Normal 0.3-0.9 Eos # 0.30 K/uL Normal 0.0-0.5 Baso # 0.06 K/uL Normal 0.0-0.1 Immature Grans Absolute 0.06 K/uL NRBC # 0.00 K/uL CBC W/Automated 02/26/2019 [facility] White 9.6 K/uL Normal 3.1-10.7 [address] [place] [address] Count [phone] Red Blood Count 4.50 M/uL Normal 3.90-5.40 Hemoglobin 13.0 gm/dL Normal 11.6-15.8 Hematocrit 40.1 % 36.0-46.1 Mean Cell Volume 89.1 fl Normal 80.9-99.0 Mean Corpuscular HGB 28.9 pg Normal 25.9-32.7 Mean Corpuscular HGB Conc 32.4 g/dL Normal 30.8-34.3 Platelet Count 214 K/uL Normal 155-360 Red Cell Distri Width SD 48.5 fl High 36-47 Red Cell Distri Width %CV 14.9 % High 11.7-14.4 Mean Platelet Volume 9.4 fl Normal 8.9-12.4 Neut% 68.0 % Normal 40.4-72.8 Lymph % 20.0 % Normal 20.0-42.0 [place] % 7.9 % Normal 4.3-13.2 Eo% 2.4 % Normal 0.0-6.6 Bas% 0.7 % Normal 0.0-1.1 Immature Grans 1.0 % Normal 0.0-5.0 NRBC % 0.0 /100WBC < 10/ 100 WBC Neut# 6.51 K/uL Normal 1.8-7.0 Lymph # 1.92 K/uL Normal 1.0-4.0 [place] # 0.76 K/uL Normal 0.3-0.9 Eos # 0.23 K/uL Normal 0.0-0.5 Baso # 0.07 K/uL Normal 0.0-0.1 Immature Grans Absolute 0.10 K/uL NRBC # 0.00 K/uL Comprehensive Metabolic 02/26/2019 [facility] Glucose 118 mg/dL High 74-106 Panel [address] [place] [address] [phone] BUN 22 mg/dL High 7-18 Creatinine 0.9 mg/dL Normal 0.6-1.3 Glom Filtration Rate, Estimate >60 mL/min >60 If >60 mL/min >60 15 BUN/Creat 24.4 ratio Sodium 138 mmol/L Normal 136-145 Potassium 4.1 mmol/L 3.5-5.1 Chloride 104 mmol/L Normal 98-107 Carbon Dioxide 28 mmol/L Normal 21-32 Anion Gap 6 mEq/L Low 8-16 Calcium 9.2 mg/dL Normal 8.5-10.1 Total Protein 7.4 g/dL Normal 6.4-8.2 Albumin 3.3 g/dL Low 3.4-5.0 Globulin 4.1 g/dL Normal 1.9-4.3 Alb/Glob 0.8 ratio Bilirubin,Total 0.1 mg/dL Low 0.2-1.0 Sgot/Ast 11 U/L Low 15-37 16 SGPT/Alt 16 U/L Normal 12-78 Alkaline Phosphatase 137 U/L High 45-117 Laboratory 02/26/2019 [facility] C-Reactive 4.8 mg/L High <3.0 test finding [address] Protein,[place] [address] [phone] Xray 02/21/2019 [facility] - Radiology Chest Single <pending [address] View, Frontal > [place] [address] [phone] CBC 02/21/2019 [facility] White Blood Count 6.7 K/uL Normal 3.1-10. 17 W/Automated [address] [place] [address] [phone] Red Blood Count 4.02 M/uL Normal 3.90-5.40 Hemoglobin 11.6 gm/dL Normal 11.6-15.8 Hematocrit 35.8 % Low 36.0-46.1 Mean Cell Volume 89.1 fl Normal 80.9-99.0 Mean Corpuscular HGB 28.9 pg Normal 25.9-32.7 Mean Corpuscular HGB Conc 32.4 g/dL Normal 30.8-34.3 Platelet Count 167 K/uL Normal 155-360 Red Cell Distri Width SD 45.3 fl Normal 36-47 Red Cell Distri Width %CV 14.1 % Normal 11.7-14.4 Mean Platelet Volume 9.7 fl Normal 8.9-12.4 Neut% 61.5 % Normal 40.4-72.8 Lymph % 24.6 % Normal 20.0-42.0 [place] % 9.5 % Normal 4.3-13.2 Eo% 1.7 % Normal 0.0-6.6 Bas% 0.6 % Normal 0.0-1.1 Immature Grans 2.1 % Normal 0.0-5.0 NRBC % 0.0 /100WBC < 10/ 100 WBC Neut# 4.10 K/uL Normal 1.8-7.0 Lymph # 1.64 K/uL Normal 1.0-4.0 [place] # 0.63 K/uL Normal 0.3-0.9 Eos # 0.11 K/uL Normal 0.0-0.5 Baso # 0.04 K/uL Normal 0.0-0.1 Immature Grans Absolute 0.14 K/uL NRBC # 0.00 K/uL Basic Metabolic Panel 02/21/2019 [facility] Glucose 97 mg/dL Normal 74-106 [address] [place] [address] [phone] BUN 9 mg/dL Normal 7-18 Creatinine 0.8 mg/dL Normal 0.6-1.3 Glom Filtration Rate, Estimate >60 mL/min >60 If >60 mL/min >60 18 BUN/Creat 11.2 ratio Sodium 140 mmol/L Normal 136-145 Potassium 3.2 mmol/L Low 3.5-5.1 Chloride 106 mmol/L Normal 98-107 Carbon Dioxide 26 mmol/L Normal 21-32 Anion Gap 8 mEq/L Normal 8-16 Calcium 8.6 mg/dL Normal 8.5-10.1 Esbl 02/20/2019 [facility] Trimethoprim/Sulfamethoxazole >=320 Resistant 19 Escherichia [address] [facility] [address] [phone] Ampicillin >=32 Resistant Cefazolin >=64 Resistant Ampicillin/Sulbactam >=32 Resistant Ciprofloxacin >=4 Resistant Piperacillin/Tazobactam >=128 Resistant Ceftazidime >=64 Resistant Ceftriaxone >=64 Resistant Cefepime >=64 Resistant Levofloxacin >=8 Resistant Imipenem <=0.25 Susceptible Gentamicin >=16 Resistant Tobramycin 8 Intermediate Amikacin <=2 Susceptible CBC W/Automated 02/20/2019 [facility] White 6.6 K/uL Normal 3.1-10.7 20 Diff 134 [facility] [address] Count [phone] Red Blood Count 4.50 M/uL Normal 3.90-5.40 Hemoglobin 13.0 gm/dL Normal 11.6-15.8 Hematocrit 40.1 % 36.0-46.1 Mean Cell Volume 89.1 fl Normal 80.9-99.0 Mean Corpuscular HGB 28.9 pg Normal 25.9-32.7 Mean Corpuscular HGB Conc 32.4 g/dL Normal 30.8-34.3 Platelet Count 175 K/uL Normal 155-360 Red Cell Distri Width SD 45.6 fl Normal 36-47 Red Cell Distri Width %CV 14.1 % Normal 11.7-14.4 Mean Platelet Volume 9.3 fl Normal 8.9-12.4 Neut% 65.0 % Normal 40.4-72.8 Lymph % 22.3 % Normal 20.0-42.0 [place] % 8.1 % Normal 4.3-13.2 Eo% 2.0 % Normal 0.0-6.6 Bas% 0.5 % Normal 0.0-1.1 Immature Grans 2.1 % Normal 0.0-5.0 NRBC % 0.0 /100WBC < 10/ 100 WBC Neut# 4.28 K/uL Normal 1.8-7.0 Lymph # 1.47 K/uL Normal 1.0-4.0 [place] # 0.53 K/uL Normal 0.3-0.9 Eos # 0.13 K/uL Normal 0.0-0.5 Baso # 0.03 K/uL Normal 0.0-0.1 Immature Grans Absolute 0.14 K/uL NRBC # 0.00 K/uL Protime 02/20/2019 [facility] Protime 13.2 seconds Normal 12.0-14.[address] [place], [place] [id number] [phone] Inr 1.0 Normal 0.9-1.1 21 Laboratory test 02/20/2019 [facility] Act 28.9 Normal 23.4-35.0 [address] [place] [address] Thrombo [phone] Time Comprehensive 02/20/2019 [facility] Glucose 94 mg/dL Normal 74-106 Metabolic Panel [address] [place], [place] [id number] [phone] BUN 6 mg/dL Low 7-18 Creatinine 0.8 mg/dL Normal 0.6-1.3 Glom Filtration Rate, Estimate >60 mL/min >60 If >60 mL/min >60 23 BUN/Creat 7.5 ratio Sodium 138 mmol/L Normal 136-145 Potassium 3.3 mmol/L Low 3.5-5.1 Chloride 106 mmol/L Normal 98-107 Carbon Dioxide 25 mmol/L Normal 21-32 Anion Gap 7 mEq/L Low 8-16 Calcium 8.8 mg/dL Normal 8.5-10.1 Total Protein 6.9 g/dL Normal 6.4-8.2 Albumin 3.0 g/dL Low 3.4-5.0 Globulin 3.9 g/dL Normal 1.9-4.3 Alb/Glob 0.8 ratio Bilirubin,Total 0.3 mg/dL Normal 0.2-1.0 Sgot/Ast 30 U/L Normal 15-37 SGPT/Alt 25 U/L Normal 12-78 Alkaline Phosphatase 143 U/L High 45-117 Aot Request 02/20/2019 [facility] Aot Request Test(s) added [address] [place] [address] [phone] Tests to be added: crp Fluid Culture W/ 02/20/2019 [facility] Gram Stain MANY WHITE 25, 26 [address]ain [address] BLOOD <[place] [address] NOTE> [phone] Gram Stain MODERATE GRAM NE <SEE NOTE> 27 Fluid Culture ESBL ESCHERICHIA <SEE NOTE> Abnormal 28 Quantity MODERATE Fluid Culture YEAST LIKE ORGAN <SEE NOTE> Abnormal 29 Quantity MANY Laboratory test 02/19/2019 [facility] C. Difficile Negative for 30, [address] Toxin B By PCR tox <[place] [address] NOTE> [phone] Laboratory test 02/19/2019 [facility] Troponin-I < 0.015 ng/mL 32 [address] [place] [address] [phone] C-Reactive Protein,Quant 35.8 mg/L High <3.0 Occult 02/19/2019 [facility] Stool Occult NEGATIVE Negative 33 Blood,Stool [address] [place] [place] [address] Spec [phone] CBC 02/17/2019 [facility] White Blood 7.2 K/uL Normal 3.1-10.[address] [place] [address] [phone] Red Blood Count 3.76 M/uL Low 3.90-5.40 Hemoglobin 11.0 gm/dL Low 11.6-15.8 Hematocrit 33.6 % Low 36.0-46.1 Mean Cell Volume 89.4 fl Normal 80.9-99.0 Mean Corpuscular HGB 29.3 pg Normal 25.9-32.7 Mean Corpuscular HGB Conc 32.7 g/dL Normal 30.8-34.3 Platelet Count 161 K/uL Normal 155-360 Red Cell Distri Width SD 46.2 fl Normal 36-47 Red Cell Distri Width %CV 14.2 % Normal 11.7-14.4 Mean Platelet Volume 9.8 fl Normal 8.9-12.4 NRBC % 0.0 /100WBC < 10/ 100 WBC Basic Metabolic Panel 02/17/2019 [facility] Glucose 117 mg/dL High 74-106 [address] [place] [address] [phone] BUN 6 mg/dL Low 7-18 Creatinine 0.9 mg/dL Normal 0.6-1.3 Glom Filtration Rate, Estimate >60 mL/min >60 If >60 mL/min >60 34 BUN/Creat 6.6 ratio Sodium 140 mmol/L Normal 136-145 Potassium 3.2 mmol/L Low 3.5-5.1 Chloride 106 mmol/L Normal 98-107 Carbon Dioxide 27 mmol/L Normal 21-32 Anion Gap 7 mEq/L Low 8-16 Calcium 8.5 mg/dL Normal 8.5-10.1 Fluid Culture W/ 02/16/2019 [facility] Gram Stain MANY WHITE BLOOD 35 Gram Stain [address] <SEE NOTE> [place] [address] [phone] Gram Stain FEW GRAM NEGATIV <SEE NOTE> 36 Fluid Culture ESBL ESCHERICHIA <SEE NOTE> Abnormal 37 Quantity MANY Ast-GN67 02/16/2019 [facility] Trimethoprim/Sulfamethoxazole >=[address] [place] [address] [phone] Ampicillin >=32 Resistant Cefazolin >=64 Resistant Ampicillin/Sulbactam >=32 Resistant Ciprofloxacin >=4 Resistant Piperacillin/Tazobactam <=4 Susceptible Ceftazidime 16 Resistant Ceftriaxone >=64 Resistant Cefepime >=64 Resistant Levofloxacin >=8 Resistant Imipenem <=0.25 Susceptible Gentamicin >=16 Resistant Tobramycin 8 Intermediate CBC 02/15/2019 [facility] White Blood Count 9.4 K/uL Normal 3.1-10.7 [address] [place] [address] [phone] Red Blood Count 3.72 M/uL Low 3.90-5.40 Hemoglobin 10.6 gm/dL Low 11.6-15.8 Hematocrit 33.9 % Low 36.0-46.1 Mean Cell Volume 91.1 fl Normal 80.9-99.0 Mean Corpuscular HGB 28.5 pg Normal 25.9-32.7 Mean Corpuscular HGB Conc 31.3 g/dL Normal 30.8-34.3 Platelet Count 198 K/uL Normal 155-360 Red Cell Distri Width SD 49.9 fl High 36-47 Red Cell Distri Width %CV 14.7 % High 11.7-14.4 Mean Platelet Volume 10.0 fl Normal 8.9-12.4 NRBC % 0.0 /100WBC < 10/ 100 WBC Basic Metabolic Panel 02/15/2019 [facility] Glucose 119 mg/dL High 74-106 [address], [place] [address] [phone] BUN 13 mg/dL Normal 7-18 Creatinine 0.9 mg/dL Normal 0.6-1.3 Glom Filtration Rate, Estimate >60 mL/min >60 If >60 mL/min >60 38 BUN/Creat 14.4 ratio Sodium 141 mmol/L Normal 136-145 Potassium 3.8 mmol/L Normal 3.5-5.1 Chloride 108 mmol/L High 98-107 Carbon Dioxide 27 mmol/L Normal 21-32 Anion Gap 6 mEq/L Low 8-16 Calcium 8.2 mg/dL Low 8.5-10.1 Celiac Disease 05/13/2017 [facility] Immunoglobulin A 91 mg/dL 87-352 39 Comp AB Profile [address] [place] [address] [phone] Antigliadin Abs, IgG 2 units 0-19 40 Antigliadin Abs, IgA 2 units 0-19 41 Endomysial IgA Antibody Negative Negative t-Transglutaminase IgA <2 U/mL 0-3 42 t-Transglutaminase IgG <2 U/mL 0-5 43 Laboratory test 05/13/2017 [facility] Sedimentation 16 mm/hr Normal 0-30 44 finding [address] [place], [place] [id number] [phone] C-Reactive Protein,Quant < 2.9 mg/L <3.0 Laboratory test finding 05/13/2017 [facility] Amylase 47 U/L Normal 25-115 [address] [place] [address] [phone] Lipase 183 U/L Normal 73-393 Comprehensive 05/13/2017 [facility] Glucose 91 mg/dL Normal 74-106 Metabolic Panel [address] [place] [address] [phone] BUN 12 mg/dL Normal 7-18 Creatinine 1.0 mg/dL Normal 0.6-1.3 Glom Filtration Rate, Estimate 60 mL/min >60 If >60 mL/min >60 45 BUN/Creat 12.0 ratio Sodium 142 mmol/L Normal 136-145 Potassium 4.1 mmol/L Normal 3.5-5.1 Chloride 111 mmol/L High 98-107 Carbon Dioxide 28 mmol/L Normal 21-32 Anion Gap 3 mEq/L Low 8-16 Calcium 10.9 mg/dL High 8.5-10.1 Total Protein 7.1 g/dL Normal 6.4-8.2 Albumin 3.5 g/dL Normal 3.4-5.0 Globulin 3.6 g/dL Normal 1.9-4.3 Alb/Glob 1.0 ratio Bilirubin,Total 0.2 mg/dL Normal 0.2-1.0 Sgot/Ast 15 U/L Normal 15-37 SGPT/Alt 22 U/L Normal 12-78 Alkaline Phosphatase 144 U/L High 45-117 CBC 05/06/2017 [facility] White Blood Count 6.6 K/uL Normal 3.1-10.7 46 [address] [place] [address] [phone] Red Blood Count 4.08 M/uL Normal 3.90-5.40 Hemoglobin 12.4 gm/dL Normal 11.6-15.8 Hematocrit 36.7 % Normal 36.0-46.1 Mean Cell Volume 90.0 fl Normal 80.9-99.0 Mean Corpuscular HGB 30.4 pg Normal 25.9-32.7 Mean Corpuscular HGB Conc 33.8 g/dL Normal 30.8-34.3 Platelet Count 169 K/uL Normal 150-400 Red Cell Distri Width %CV 13.4 % Normal 11.7-14.4 Mean Platelet Volume 11.3 fL Normal 8.9-12.4 Laboratory 05/06/2017 [facility] Sedimentation 16 mm/hr Normal 0-30 47 test finding [address] [place] [place] [address] [phone] Basic 05/06/2017 [facility] Glucose 94 mg/dL Normal 74-106 Metabolic [address] Panel [place], [place] [id number] [phone] BUN 10 mg/dL Normal 7-18 Creatinine 0.8 mg/dL Normal 0.6-1.3 Glom Filtration Rate, Estimate >60 mL/min >60 If >60 mL/min >60 48 BUN/Creat 12.5 ratio Sodium 143 mmol/L Normal 136-145 Potassium 3.8 mmol/L Normal 3.5-5.1 Chloride 111 mmol/L High 98-107 Carbon Dioxide 26 mmol/L Normal 21-32 Anion Gap 6 mEq/L Low 8-16 Calcium 9.6 mg/dL Normal 8.5-10.1 Laboratory test 05/06/2017 [facility] Magnesium 1.9 mg/dL Normal 1.8-2.4 finding [address] [place], [place] [id number] [phone] C-Reactive Protein,Quant 11.6 mg/L High <3.0 Xray 05/04/2017 [facility] - Radiology CT, Abdomen & Pelvis W Contrast <pending> [address] [place] [address] [phone] 1 DIVERTICULITIS ESBL 2 Note: Persistent reduction for 3 months or more in an eGFR <60 mL/min/1.73 m2 defines CKD. Patients with eGFR values >/=60 mL/min/1.73 m2 may also have CKD if evidence of persistent proteinuria is present. The original MDRD equation for estimated GFR is not valid for patients less than 18 years of age. Additional information may be found at [email or web address]. 3 DIVERTICULITIS;ESBL 4 Note: Persistent reduction for 3 months or more in an eGFR <60 mL/min/1.73 m2 defines CKD. Patients with eGFR values >/=60 mL/min/1.73 m2 may also have CKD if evidence of persistent proteinuria is present. The original MDRD equation for estimated GFR is not valid for patients less than 18 years of age. Additional information may be found at [email or web address]. 5 DIVERTICULITIS-ESBL 6 Note: Persistent reduction for 3 months or more in an eGFR <60 mL/min/1.73 m2 defines CKD. Patients with eGFR values >/=60 mL/min/1.73 m2 may also have CKD if evidence of persistent proteinuria is present. The original MDRD equation for estimated GFR is not valid for patients less than 18 years of age. Additional information may be found at [email or web address]. 7 DIVERTICULITIS ESBL 8 Note: Persistent reduction for 3 months or more in an eGFR <60 mL/min/1.73 m2 defines CKD. Patients with eGFR values >/=60 mL/min/1.73 m2 may also have CKD if evidence of persistent proteinuria is present. The original MDRD equation for estimated GFR is not valid for patients less than 18 years of age. Additional information may be found at [email or web address]. 9 Note: Persistent reduction for 3 months or more in an eGFR <60 mL/min/1.73 m2 defines CKD. Patients with eGFR values >/=60 mL/min/1.73 m2 may also have CKD if evidence of persistent proteinuria is present. The original MDRD equation for estimated GFR is not valid for patients less than 18 years of age. Additional information may be found at [email or web address]. 10 Values below the stated reference ranges of AST and ALT can be seen in normal populations. Clinical correlation is suggested. 11 Note: Persistent reduction for 3 months or more in an eGFR <60 mL/min/1.73 m2 defines CKD. Patients with eGFR values >/=60 mL/min/1.73 m2 may also have CKD if evidence of persistent proteinuria is present. The original MDRD equation for estimated GFR is not valid for patients less than 18 years of age. Additional information may be found at [email or web address]. 12 Values below the stated reference ranges of AST and ALT can be seen in normal populations. Clinical correlation is suggested. 13 Note: Persistent reduction for 3 months or more in an eGFR <60 mL/min/1.73 m2 defines CKD. Patients with eGFR values >/=60 mL/min/1.73 m2 may also have CKD if evidence of persistent proteinuria is present. The original MDRD equation for estimated GFR is not valid for patients less than 18 years of age. Additional information may be found at [email or web address]. 14 DIVERTICULITIS 15 Note: Persistent reduction for 3 months or more in an eGFR <60 mL/min/1.73 m2 defines CKD. Patients with eGFR values >/=60 mL/min/1.73 m2 may also have CKD if evidence of persistent proteinuria is present. The original MDRD equation for estimated GFR is not valid for patients less than 18 years of age. Additional information may be found at [email or web address]. 16 Values below the stated reference ranges of AST and ALT can be seen in normal populations. Clinical correlation is suggested. 17 DIVERTICULAR FLARE 18 Note: Persistent reduction for 3 months or more in an eGFR <60 mL/min/1.73 m2 defines CKD. Patients with eGFR values >/=60 mL/min/1.73 m2 may also have CKD if evidence of persistent proteinuria is present. The original MDRD equation for estimated GFR is not valid for patients less than 18 years of age. Additional information may be found at [email or web address]. 19 PHILLIP AUTH 02/23 LEONEL 20 DIVERTICULAR FLARE 21 THERAPEUTIC INR RANGE: 2.0 - 3.0 DVT, Pulmonary embolus, prophylaxis against venous thrombosis or systemic embolization in high risk patients. 2.5 - 3.5 Mechanical heart valves 22 Is patient on heparin protocol? N 23 Note: Persistent reduction for 3 months or more in an eGFR <60 mL/min/1.73 m2 defines CKD. Patients with eGFR values >/=60 mL/min/1.73 m2 may also have CKD if evidence of persistent proteinuria is present. The original MDRD equation for estimated GFR is not valid for patients less than 18 years of age. Additional information may be found at [email or web address]. 24 Tests: crp Instructions: 25 PHILLIP AUTH 510 LEONEL 26 MANY WHITE BLOOD CELLS 27 MODERATE GRAM NEGATIVE BACILLI 28 ESBL ESCHERICHIA COLI 29 YEAST LIKE ORGANISM 30 DIVERTICULAR FLARE 31 Negative for toxigenic C. difficile by PCR 32 0.0 - 0.045 ng/mL: Normal 0.046 - 0.5 ng/mL: Suggestive 0.6 - 1.5 ng/mL: Consistent 33 Method: [place] Hemoccult Card 34 Note: Persistent reduction for 3 months or more in an eGFR <60 mL/min/1.73 m2 defines CKD. Patients with eGFR values >/=60 mL/min/1.73 m2 may also have CKD if evidence of persistent proteinuria is present. The original MDRD equation for estimated GFR is not valid for patients less than 18 years of age. Additional information may be found at [email or web address]. 35 MANY WHITE BLOOD CELLS 36 FEW GRAM NEGATIVE BACILLI 37 ESBL ESCHERICHIA COLI 38 Note: Persistent reduction for 3 months or more in an eGFR <60 mL/min/1.73 m2 defines CKD. Patients with eGFR values >/=60 mL/min/1.73 m2 may also have CKD if evidence of persistent proteinuria is present. The original MDRD equation for estimated GFR is not valid for patients less than 18 years of age. Additional information may be found at [email or web address]. 39 R10.31, R93.2, K29.80 40 Negative 0 - 19 Weak Positive 20 - 30 Moderate to Strong Positive >30 41 Negative 0 - 19 Weak Positive 20 - 30 Moderate to Strong Positive >30 42 Negative 0 - 3 Weak Positive 4 - 10 Positive >10 Tissue Transglutaminase (tTG) has been identified as the endomysial antigen. Studies have demonstr- ated that endomysial IgA antibodies have over 99% specificity for gluten sensitive enteropathy. 43 Negative 0 - 5 Weak Positive 6 - 9 Positive >9 Performed at: - [facility] [id number] Hogshead Dumper: Carmen Stinson MD, Phone: [phone] 44 Method: Sediplast Modified Westergren 45 Note: Persistent reduction for 3 months or more in an eGFR <60 mL/min/1.73 m2 defines CKD. Patients with eGFR values >/=60 mL/min/1.73 m2 may also have CKD if evidence of persistent proteinuria is present. The original MDRD equation for estimated GFR is not valid for patients less than 18 years of age. Additional information may be found at [email or web address]. 46 RLQ ABDOMINAL PAIN 47 Method: Sediplast Modified Westergren 48 Note: Persistent reduction for 3 months or more in an eGFR <60 mL/min/1.73 m2 defines CKD. Patients with eGFR values >/=60 mL/min/1.73 m2 may also have CKD if evidence of persistent proteinuria is present. The original MDRD equation for estimated GFR is not valid for patients less than 18 years of age. Additional information may be found at [email or web address]. Procedures Date Code Description Status 04/27/2019 36678 Colonoscopy With Biopsy Completed 02/19/2019 93223 EKG Interpretation And Report Only Completed 02/14/2019 06988 Spirometry Completed 01/21/2019 85342 EKG Interpretation And Report Only Completed 05/04/2017 40279 EKG Interpretation And Report Only Completed 11/24/2016 12013 Echocardiogram Complete Completed 11/24/2016 38935 EKG Interpretation And Report Only Completed 11/29/2015 94691 EKG Interpretation And Report Only Completed Encounters Type Date Location Provider Dx Diagnosis Office Visit 05/09/2019 Physical Medicine Pinky Storey, K57.20 Dvtrcli of lg int w 2:45p & Infectious M.D. 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 I10 Essential (primary) hypertension I82.621 Acute embolism and thrombosis of deep veins of r up extrem J44.9 Chronic obstructive pulmonary disease, unspecified R13.10 Dysphagia, unspecified D18.00 Hemangioma unspecified site F17.210 Nicotine dependence, cigarettes, uncomplicated Z71.6 Tobacco abuse counseling Office Visit 04/09/2019 1:45p Pulmonology Yung Claros MD J44.9 Chronic obstructive pulmonary disease, unspecified I82.621 Acute embolism and thrombosis of deep veins of r up extrem F17.210 Nicotine dependence, cigarettes, uncomplicated Z71.6 Tobacco abuse counseling Office Visit 03/28/2019 3:15p Physical Medicine Pinky Storey K57.20 Dvtrcli of lg int & Infectious M.D. 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 states Office Visit 03/14/2019 Physical Pinky Storey K57.20 Dvtrcli of lg int w 2:30p Medicine & M.D. 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 unsp, w/o perf or abscess w/o bleed R10.9 Unspecified abdominal pain R10.32 Left lower quadrant pain R50.9 Fever, unspecified J44.9 Chronic obstructive pulmonary disease, unspecified Office Visit 02/07/2019 3:00p Pulmonology Yung Claros MD J44.9 Chronic obstructive pulmonary disease, unspecified F17.210 Nicotine dependence, cigarettes, uncomplicated Z71.6 Tobacco abuse counseling Office Visit 02/01/2019 8:30a Surgical Office Jessica Suarez, K57.32 Dvtrcli of lg int PA w/o perforation or abscess w/o bleeding J44.9 Chronic obstructive pulmonary disease, unspecified R19.7 Diarrhea, unspecified Office Visit 05/13/2017 3:00p GI Erickson Snyder MD R93.2 Abnormal findings on dx imaging of liver and biliary tract R93.2 Abnormal findings on dx imaging of liver and biliary tract K29.80 Duodenitis without bleeding K29.80 Duodenitis without bleeding R10.31 Right lower quadrant pain Z12.11 Encounter for screening for malignant neoplasm of colon Z12.11 Encounter for screening for malignant neoplasm of colon Office Visit 12/02/2015 3:39p Pulmonology Yung Claros, J44.1 Chronic obstructive MD pulmonary disease w (acute) exacerbation Plan of Treatment Future Appointment(s):06/28/2019 9:00 am - David Maya MD at GI05/09/2019 - Pinky Storey M.D.K57.20 Diverticulitis of large intestine with perforation and absceFollow up:prnF17.210 Nicotine dependence, cigarettes, hmoaqtacmctorV37.12 Extended spectrum beta lactamase (Esbl) [id number] Essential (primary) sgfhgzniteacM53.6 Tobacco abuse counseling
[2019-05-25 16:51] VITALS: BP 152/92
--- OUTSIDE RECORDS SUMMARY | 2019-05-25 16:51 | XMS REPORT | Continuity of Care Document ---
:1955 External Reference #:[id number] Author Name Pinky Storey M.D. 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 Solution Diflucan 1 po qday 14tabs Eldon, 02/23/2019 - 200mg Christian López, 03/07/2019 Tablets M.DAngelo Ventolin HFA take 2 puffs every 8gm J44.9 Yung Claros MD 02/07/2019 - 6 hours as needed 02/19/2019 108(90Base) mcg/Act for shortness of Aerosol breath. Golytely drink half the 4000ml Z12.11 Erickson Snyder MD 05/13/2017 - 236gm evening before and 02/01/2019 Solution Rec half the morning of the procedure (1 cup every 10') Dulcolax 4 tablets taken a 4tabs Z12.11 Erickson Snyder MD 05/13/2017 - 5mg Tablets 8pm the day before 02/01/2019 the procedure Magnesium Citrate 1 bottle po x one 296ml Z12.11 Erickson Snyder MD 05/13/2017 - as directed 02/01/2019 1.745GM/30ML Solution Pantoprazole Sodium 1 by mouth every 90tabs K29.80 Erickson Snyder MD 2016 - day every morning 02/01/2019 40mg Tablets Advair Diskus use 1 breath twice 60units Tom Colindres 11/30/2016 - a day Pedro Huang, [facility] 02/01/2019 250-50mcg/Dose Aerosol Spiriva Handihaler 1 inhalation every 30caps oTm Colindres 11/30/2016 - day Pedro Huang, [facility] 02/07/2019 18mcg Capsules Aspirin Low Dose chew [...] Rate 81 /min Height 64 inches 5'4" Meredith body weight in kilograms 54 kg O2 % BldC Oximetry 98 % 05/07/2019 8:47am Height 64 inches 5'4" Weight 187.00 lb BMI (Body Mass Index) 32.1 kg/m2 BSA (Body Surface Area) 1.90 m2 Meredith body weight in kilograms 54 kg 04/18/2019 3:26pm BP Systolic Sitting Right Arm 144 mmHg BP Diastolic Sitting Right Arm 85 mmHg Body Temperature 95.6 F Heart Rate 55 /min Height 64 inches 5'4" Weight 191.00 lb BMI (Body Mass Index) 32.8 kg/m2 BSA (Body Surface Area) 1.92 m2 Meredith body weight in kilograms 54 kg 04/09/2019 1:39pm BP Systolic Sitting Left Arm 130 mmHg BP Diastolic Sitting Left Arm 80 mmHg Heart Rate 94 /min Respiratory Rate 18 /min Height 64 inches 5'4" Weight 190.00 lb BMI (Body Mass Index) 32.6 kg/m2 BSA (Body Surface Area) 1.91 m2 Meredith body weight in kilograms 54 kg O2 % BldC Oximetry 95 % 03/28/2019 3:11pm BP Systolic Sitting Right Arm 141 mmHg BP Diastolic Sitting Right Arm 84 mmHg Body Temperature 95.0 F Heart Rate 65 /min Height 64 inches 5'4" Weight 193.00 lb BMI (Body Mass Index) 33.1 kg/m2 BSA (Body Surface Area) 1.93 m2 Meredith body weight in kilograms 54 kg 03/21/2019 2:17pm BP Systolic 118 mmHg BP Diastolic 80 mmHg Height 64 inches 5'4" Weight 191.00 lb BMI (Body Mass Index) 32.8 kg/m2 BSA (Body Surface Area) 1.92 m2 Meredith body weight in kilograms 54 kg 03/14/2019 2:26pm BP Systolic Sitting Right Arm 123 mmHg BP Diastolic Sitting Right Arm 84 mmHg Heart Rate 85 /min Height 64 inches 5'4" Weight 192.00 lb BMI (Body Mass Index) 33.0 kg/m2 BSA (Body Surface Area) 1.92 m2 Meredith body weight in kilograms 54 kg 03/07/2019 1:09pm BP Systolic Sitting Right Arm 132 mmHg wrist BP Diastolic Sitting Right Arm 85 mmHg wrist Body Temperature 98.7 F Heart Rate 92 /min Height 64 inches 5'4" Weight 188.00 lb BMI (Body Mass Index) 32.3 kg/m2 BSA (Body Surface Area) 1.91 m2 Meredith body weight in kilograms 54 kg 03/07/2019 9:36am BP Systolic 136 mmHg BP Diastolic 90 mmHg Height 64 inches 5'4" Weight 189.00 lb BMI (Body Mass Index) 32.4 kg/m2 BSA (Body Surface Area) 1.91 m2 Meredith body weight in kilograms 54 kg 02/14/2019 3:15pm BP Systolic 176 mmHg BP Diastolic 95 mmHg Body Temperature 98.4 F Heart Rate 105 /min Respiratory Rate 22 /min Height 64 inches 5'4" Meredith body weight in kilograms 54 kg O2 % BldC Oximetry 93 % 02/07/2019 3:09pm BP Systolic Sitting Left Arm 137 mmHg BP Diastolic Sitting Left Arm 80 mmHg Heart Rate 75 /min Respiratory Rate 16 /min Height 64 inches 5'4" Weight 191.00 lb BMI (Body Mass Index) 32.8 kg/m2 BSA (Body Surface Area) 1.92 m2 Meredith body weight in kilograms 54 kg O2 Saturation Level with Exercise 94 % 02/01/2019 8:05am BP Systolic 137 mmHg BP Diastolic 80 mmHg Heart Rate 76 /min Height 64 inches 5'4" Weight 189.25 lb BMI (Body Mass Index) 32.5 kg/m2 BSA (Body Surface Area) 1.91 m2 Meredith body weight in kilograms 54 kg O2 % BldC Oximetry 96 % 05/13/2017 3:07pm BP Systolic Sitting Resting Right Arm 138 mmHg BP Diastolic Sitting Resting Right Arm 88 mmHg Heart Rate 75 /min Respiratory Rate 16 /min Height 64 inches 5'4" Weight 178.00 lb BMI (Body Mass Index) 30.6 kg/m2 BSA (Body Surface Area) 1.86 m2 Meredith body weight in kilograms 54 kg Results Test Date Facility Test Result H/L Range Note CBC 04/23/2019 [facility] White Blood Count 5.6 K/uL Normal 3.1-10.7 1 [address] [place] [address] [phone] Red Blood Count 4.15 M/uL Normal 3.90-5.40 [...] /100WBC < 10/ 100 WBC Comprehensive 04/23/2019 [facility] Glucose 94 mg/dL Normal 74-106 Metabolic Panel [address] [place] [address] [phone] BUN 19 mg/dL High 7-18 Creatinine 0.8 [...] Phosphatase 195 U/L High 45-117 Laboratory 04/23/2019 [facility] C-Reactive 4.9 mg/L High <3.0 test finding [address],[place], [place] [id number] [phone] CBC 04/16/2019 [facility] White Blood Count 5.4 K/uL Normal 3.1-10.7 3 [address] [place] [place], [place] [address] [phone] Red Blood Count 4.15 M/uL Normal 3.90-5.40 [...] < 10/ 100 WBC Comprehensive Metabolic 04/16/2019 [facility] Glucose 125 mg/dL High 74-106 Panel [address] [place] [address] [phone] BUN 16 mg/dL Normal 7-18 Creatinine 0.8 [...] Phosphatase 199 U/L High 45-117 Laboratory 04/16/2019 [facility] C-Reactive 4.2 mg/L High <3.0 test finding [address] Protein,[place], [place] [address] [phone] Laboratory 04/09/2019 [facility] C-Reactive 5.2 mg/L High <3.0 5 test finding [address],[place], [place] [address] [phone] CBC 04/09/2019 [facility] White Blood Count 5.3 K/uL Normal 3.1-10.7 [address] [place] [address] [phone] Red Blood Count 4.13 M/uL Normal 3.90-5.40 [...] < 10/ 100 WBC Comprehensive Metabolic 04/09/2019 [facility] Glucose 118 mg/dL High 74-106 Panel [address] [place] [address] [phone] BUN 16 mg/dL Normal 7-18 Creatinine 0.9 [...] Phosphatase 212 U/L High 45-117 Laboratory 04/02/2019 [facility] C-Reactive 7.2 mg/L High <3.0 7 test finding [address] [facility] Protein,Quant [place], [place] [address] [phone] CBC 04/02/2019 [facility] White Blood Count 5.3 K/uL Normal 3.1-10.7 [address] [place], [place] [address] [phone] Red Blood Count 4.17 M/uL Normal 3.90-5.40 [...] /100WBC < 10/ 100 WBC Comprehensive 04/02/2019 [facility] Glucose 101 mg/dL Normal 74-106 Metabolic Panel [address] [place] [address] [phone] BUN 19 mg/dL High 7-18 Creatinine 0.8 [...] Phosphatase 196 U/L High 45-117 CBC 03/26/2019 [facility] White Blood Count 5.3 K/uL Normal 3.1-10.7 [address] [place] [address] [phone] Red Blood Count 4.07 M/uL Normal 3.90-5.40 [...] /100WBC < 10/ 100 WBC Comprehensive 03/26/2019 [facility] Glucose 96 mg/dL Normal 74-106 Metabolic Panel [address] [place] [address] [phone] BUN 20 mg/dL High 7-18 Creatinine 0.9 [...] Phosphatase 187 U/L High 45-117 Laboratory 03/26/2019 [facility] C-Reactive 4.5 mg/L High <3.0 test finding [address] [facility] Protein,Quant [place], [place] [address] [phone] CBC 03/19/2019 [facility] White Blood Count 6.6 K/uL Normal 3.1-10.7 [address] [place], [place] [address] [phone] Red Blood Count 3.85 M/uL Low 3.90-5.40 [...] /100WBC < 10/ 100 WBC Comprehensive 03/19/2019 [facility] Glucose 83 mg/dL Normal 74-106 Metabolic Panel [address] [place] [address] [phone] BUN 16 mg/dL Normal 7-18 Creatinine 0.7 [...] 156 U/L High 45-117 Laboratory test 03/19/2019 [facility] C-Reactive 4.3 mg/L High <3.[address] Protein,[place] [address] [phone] Laboratory test 03/13/2019 [facility] C-Reactive 18.4 High <3.[address] Protein,Quant mg/[place] [address] [phone] Basic Metabolic 03/13/2019 [facility] Glucose 131 High 74-[address] mg/[place] [address] [phone] BUN 18 mg/dL Normal 7-18 Creatinine 1.0 [...] Normal 3.1-10.[address] [place] [address] [phone] Red Blood Count 3.95 M/uL Normal 3.90-5.40 [...] 40.4-72.8 Lymph % 21.8 % Normal 20.0-42.0 [place] % 6.7 % Normal 4.3-13.2 Eo% 4.0 % Normal 0.0-6.6 Bas% 0.8 % Normal 0.0-1.1 Immature Grans 0.8 % Normal 0.0-5.0 NRBC % 0.0 /100WBC < 10/ 100 WBC Neut# 4.95 K/uL Normal 1.8-7.0 Lymph # 1.64 K/uL Normal 1.0-4.0 [place] # 0.50 K/uL Normal 0.3-0.9 Eos # 0.30 K/uL Normal 0.0-0.5 Baso # 0.06 K/uL Normal 0.0-0.1 Immature Grans Absolute 0.06 K/uL NRBC # 0.00 K/uL CBC W/Automated 02/26/2019 [facility] White 9.6 K/uL Normal 3.1-10.7 [address] [place] [address] Count [phone] Red Blood Count 4.50 M/uL Normal 3.90-5.40 [...] 40.4-72.8 Lymph % 20.0 % Normal 20.0-42.0 [place] % 7.9 % Normal 4.3-13.2 Eo% 2.4 % Normal 0.0-6.6 Bas% 0.7 % Normal 0.0-1.1 Immature Grans 1.0 % Normal 0.0-5.0 NRBC % 0.0 /100WBC < 10/ 100 WBC Neut# 6.51 K/uL Normal 1.8-7.0 Lymph # 1.92 K/uL Normal 1.0-4.0 [place] # 0.76 K/uL Normal 0.3-0.9 Eos # 0.23 K/uL Normal 0.0-0.5 Baso # 0.07 K/uL Normal 0.0-0.1 Immature Grans Absolute 0.10 K/uL NRBC # 0.00 K/uL Comprehensive Metabolic 02/26/2019 [facility] Glucose 118 mg/dL High 74-106 Panel [address] [place] [address] [phone] BUN 22 mg/dL High 7-18 Creatinine 0.9 [...] Phosphatase 137 U/L High 45-117 Laboratory 02/26/2019 [facility] C-Reactive 4.8 mg/L High <3.0 test finding [address] Protein,Quant [place], [place] [address] [phone] Xray 02/21/2019 [facility] - Radiology Chest Single <pending [address] View, Frontal > [place], [place] [address] [phone] CBC 02/21/2019 [facility] White Blood Count 6.7 K/uL Normal 3.1-10. 17 W/Automated [address] [place] [address] [phone] Red Blood Count 4.02 M/uL Normal 3.90-5.40 [...] 40.4-72.8 Lymph % 24.6 % Normal 20.0-42.0 [place] % 9.5 % Normal 4.3-13.2 Eo% 1.7 % Normal 0.0-6.6 Bas% 0.6 % Normal 0.0-1.1 Immature Grans 2.1 % Normal 0.0-5.0 NRBC % 0.0 /100WBC < 10/ 100 WBC Neut# 4.10 K/uL Normal 1.8-7.0 Lymph # 1.64 K/uL Normal 1.0-4.0 [place] # 0.63 K/uL Normal 0.3-0.9 Eos # 0.11 K/uL Normal 0.0-0.5 Baso # 0.04 K/uL Normal 0.0-0.1 Immature Grans Absolute 0.14 K/uL NRBC # 0.00 K/uL Basic Metabolic Panel 02/21/2019 [facility] Glucose 97 mg/dL Normal 74-106 [address] [place] [address] [phone] BUN 9 mg/dL Normal 7-18 Creatinine 0.8 mg/dL Normal 0.6-1.3 Glom Filtration Rate, Estimate >60 mL/min >60 If >60 mL/min >60 18 BUN/Creat 11.2 ratio Sodium 140 mmol/L Normal 136-145 Potassium 3.2 mmol/L Low 3.5-5.1 Chloride 106 mmol/L Normal 98-107 Carbon Dioxide 26 mmol/L Normal 21-32 Anion Gap 8 mEq/L Normal 8-16 Calcium 8.6 mg/dL Normal 8.5-10.1 Esbl 02/20/2019 [facility] Trimethoprim/Sulfamethoxazole >=320 Resistant 19 Escherichia [address] [facility] Coli [place], [place] [address] [phone] Ampicillin >=32 Resistant Cefazolin >=64 Resistant Ampicillin/Sulbactam >=32 Resistant Ciprofloxacin >=4 Resistant Piperacillin/Tazobactam >=128 Resistant Ceftazidime >=64 Resistant Ceftriaxone >=64 Resistant Cefepime >=64 Resistant Levofloxacin >=8 Resistant Imipenem <=0.25 Susceptible Gentamicin >=16 Resistant Tobramycin 8 Intermediate Amikacin <=2 Susceptible CBC W/Automated 02/20/2019 [facility] White 6.6 K/uL Normal 3.1-10.7 20 Diff [address] [facility] [place] [address] Count [phone] Red Blood Count 4.50 M/uL Normal 3.90-5.40 [...] 40.4-72.8 Lymph % 22.3 % Normal 20.0-42.0 [place] % 8.1 % Normal 4.3-13.2 Eo% 2.0 % Normal 0.0-6.6 Bas% 0.5 % Normal 0.0-1.1 Immature Grans 2.1 % Normal 0.0-5.0 NRBC % 0.0 /100WBC < 10/ 100 WBC Neut# 4.28 K/uL Normal 1.8-7.0 Lymph # 1.47 K/uL Normal 1.0-4.0 [place] # 0.53 K/uL Normal 0.3-0.9 Eos # 0.13 K/uL Normal 0.0-0.5 Baso # 0.03 K/uL Normal 0.0-0.1 Immature Grans Absolute 0.14 K/uL NRBC # 0.00 K/uL Protime 02/20/2019 [facility] Protime 13.2 seconds Normal 12.0-14.4 [address] [place], [place] [address] [phone] Inr 1.0 Normal 0.9-1.1 21 Laboratory test 02/20/2019 [facility] Act 28.9 Normal 23.4-35.0 [address] [place] [place] [address] Thrombo [phone] Time Comprehensive 02/20/2019 [facility] Glucose 94 mg/dL Normal 74-106 Metabolic Panel [address] [place], [place] [address] [phone] BUN 6 mg/dL Low 7-18 Creatinine 0.8 [...] 143 U/L High 45-117 Aot Request 02/20/2019 [facility] Aot Request Test(s) added [address] [place] [address] [phone] Tests to be added: crp Fluid Culture W/ 02/20/2019 [facility] Gram Stain MANY WHITE 25, 26 [address]ain [address] BLOOD <[place] [address] NOTE> [phone] Gram Stain MODERATE GRAM NE <SEE NOTE> 27 Fluid Culture ESBL ESCHERICHIA <SEE NOTE> Abnormal 28 Quantity MODERATE Fluid Culture YEAST LIKE ORGAN <SEE NOTE> Abnormal 29 Quantity MANY Laboratory test 02/19/2019 [facility] C. Difficile Negative for 30, [address] Toxin B By PCR tox <[place] [address] NOTE> [phone] Laboratory test 02/19/2019 [facility] Troponin-I < 0.015 ng/mL [address] [place] [address] [phone] C-Reactive Protein,Quant 35.8 mg/L High <3.0 Occult 02/19/2019 [facility] Stool Occult NEGATIVE Negative 33 Blood,Stool [address] [place] [address] Spec [phone] CBC 02/17/2019 [facility] White Blood 7.2 K/uL Normal 3.1-10.[address] Count [place], [place] [address] [phone] Red Blood Count 3.76 M/uL Low 3.90-5.40 [...] 10/ 100 WBC Basic Metabolic Panel 02/17/2019 [facility] Glucose 117 mg/dL High 74-106 [address] [place] [place], [place] [address] [phone] BUN 6 mg/dL Low 7-18 Creatinine 0.9 mg/dL Normal 0.6-1.3 Glom Filtration Rate, Estimate >60 mL/min >60 If >60 mL/min >60 34 BUN/Creat 6.6 ratio Sodium 140 mmol/L Normal 136-145 Potassium 3.2 mmol/L Low 3.5-5.1 Chloride 106 mmol/L Normal 98-107 Carbon Dioxide 27 mmol/L Normal 21-32 Anion Gap 7 mEq/L Low 8-16 Calcium 8.5 mg/dL Normal 8.5-10.1 Fluid Culture W/ 02/16/2019 [facility] Gram Stain MANY WHITE BLOOD [address] <SEE NOTE> [place] [address] [phone] Gram Stain FEW GRAM NEGATIV <SEE NOTE> 36 Fluid Culture ESBL ESCHERICHIA <SEE NOTE> Abnormal 37 Quantity MANY Ast-GN67 02/16/2019 [facility] Trimethoprim/Sulfamethoxazole >=[address] [place] [address] [phone] Ampicillin >=32 Resistant Cefazolin >=64 Resistant Ampicillin/Sulbactam >=32 Resistant Ciprofloxacin >=4 Resistant Piperacillin/Tazobactam <=4 Susceptible Ceftazidime 16 Resistant Ceftriaxone >=64 Resistant Cefepime >=64 Resistant Levofloxacin >=8 Resistant Imipenem <=0.25 Susceptible Gentamicin >=16 Resistant Tobramycin 8 Intermediate CBC 02/15/2019 [facility] White Blood Count 9.4 K/uL Normal 3.1-10.[address] [place] [address] [phone] Red Blood Count 3.72 M/uL Low 3.90-5.40 [...] 10/ 100 WBC Basic Metabolic Panel 02/15/2019 [facility] Glucose 119 mg/dL High 74-106 [address] [place] [address] [phone] BUN 13 mg/dL Normal 7-18 Creatinine 0.9 mg/dL Normal 0.6-1.3 Glom Filtration Rate, Estimate >60 mL/min >60 If >60 mL/min >60 38 BUN/Creat 14.4 ratio Sodium 141 mmol/L Normal 136-145 Potassium 3.8 mmol/L Normal 3.5-5.1 Chloride 108 mmol/L High 98-107 Carbon Dioxide 27 mmol/L Normal 21-32 Anion Gap 6 mEq/L Low 8-16 Calcium 8.2 mg/dL Low 8.5-10.1 Celiac Disease 05/13/2017 [facility] Immunoglobulin A 91 mg/dL 87-352 39 Comp AB Profile [address] [place] [address] [phone] Antigliadin Abs, IgG 2 units 0-19 40 Antigliadin Abs, IgA 2 units 0-19 41 Endomysial IgA Antibody Negative Negative t-Transglutaminase IgA <2 U/mL 0-3 42 t-Transglutaminase IgG <2 U/mL 0-5 43 Laboratory test 05/13/2017 [facility] Sedimentation 16 mm/hr Normal 0-30 44 finding [address] [place] [address] [phone] C-Reactive Protein,Quant < 2.9 mg/L <3.0 Laboratory test finding 05/13/2017 [facility] Amylase 47 U/L Normal 25-115 [address] [place] [address] [phone] Lipase 183 U/L Normal 73-393 Comprehensive 05/13/2017 [facility] Glucose 91 mg/dL Normal 74-106 Metabolic Panel [address] [place] [address] [phone] BUN 12 mg/dL Normal 7-18 Creatinine 1.0 [...] Phosphatase 144 U/L High 45-117 CBC 05/06/2017 [facility] White Blood Count 6.6 K/uL Normal 3.1-10.7 46 [address] [place] [address] [phone] Red Blood Count 4.08 M/uL Normal 3.90-5.40 [...] mm/hr Normal 0-30 47 test finding [address] [place] [address] [phone] Basic 05/06/2017 [facility] Glucose 94 mg/dL Normal 74-[address] Panel [place], [place] [address] [phone] BUN 10 mg/dL Normal 7-18 Creatinine 0.8 [...] Magnesium 1.9 mg/dL Normal 1.8-2.4 finding [address] [place], [place] [address] [phone] C-Reactive Protein,Quant 11.6 mg/L High <3.0 Xray 05/04/2017 [facility] - Radiology CT, Abdomen & Pelvis W Contrast <pending> [address] [place], [place] [address] [phone] 1 DIVERTICULITIS ESBL 2 Note: Persistent reduction [...] be found at [email or web address]. 19 PHILLIP AUTH 5 LEONEL 20 DIVERTICULAR FLARE 21 THERAPEUTIC INR [...] 24 Tests: crp Instructions: 25 PHILLIP AUTH 5/10 LEONEL 26 MANY WHITE BLOOD CELLS 27 MODERATE GRAM NEGATIVE BACILLI 28 ESBL ESCHERICHIA COLI 29 YEAST LIKE ORGANISM 30 DIVERTICULAR FLARE 31 Negative for toxigenic C. difficile by PCR 32 0.0 - 0.045 ng/mL: Normal 0.046 - 0.5 ng/mL: Suggestive 0.6 - 1.5 ng/mL: Consistent 33 Method: Yue Karlie Hemoccult Card 34 Note: Persistent reduction for [...] - 9 Positive >9 Performed at: - [facility] [address] [id number] Patient Insurance Clerk: Carmen Stinson MD, Phone: [phone] 44 Method: Sediplast Modified Westergren 45 Note: [...] [email or web address] Procedures Date Code Description Status 04/27/2019 41105 Colonoscopy With Biopsy Completed 02/19/2019 90260 EKG Interpretation And Report Only Completed 02/14/2019 67433 Spirometry Completed 01/21/2019 11111 EKG Interpretation And Report Only Completed 05/04/2017 83476 EKG Interpretation And Report Only Completed 11/24/2016 58824 Echocardiogram Complete Completed 11/24/2016 86647 EKG Interpretation And Report Only Completed 11/29/2015 05568 EKG Interpretation And Report Only Completed Encounters Type Date Location Provider Dx Diagnosis Office Visit 05/09/2019 Physical Medicine Pinky Storey K57.20 Dvtrcli of lg int w 2:45p & Infectious M.D. 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 Office Visit 02/14/2019 3:45p Surgical Office [place]7.90 Dvrtclos of Christian López intest, part M.DAngelo unsp, w/o perf or abscess w/o bleed R10.9 Unspecified abdominal pain R10.32 Left lower quadrant pain R50.9 Fever, unspecified J44.9 Chronic obstructive pulmonary disease, unspecified Office Visit 02/07/2019 3:00p Pulmonology Yung Claros MD J44.9 Chronic obstructive pulmonary disease, unspecified F17.210 Nicotine dependence, cigarettes, uncomplicated Z71.6 Tobacco abuse counseling Office Visit 02/01/2019 8:30a Surgical Office Jessica Suarez K57.32 Dvtrcli of lg int PA w/o [...] 9:00 am - David Maya MD at GI05/07/2019 - Jessica Suarez PAZ12.11 Encounter for screening for malignant neoplasm of zqwuxY25.30 Diverticulosis of large intestine without perforation or abscess without bleeding
--- NOTE | 2019-05-25 16:58 | UC ---
UC General HPI - HPI Summary HPI Summary: 63 year old female presents with complaints of intermittent headache for 2 weeks , pains in her hands "like cramps", numbness in fingers. Also notes pain down legs, to her feet. Headache starts on both sides of face and radiates to both sides of head, when pain is "really bad gets blurred vision", comes and goes, no neck pain. She has been in and out of the hospital for a colonic E. coli infection requiring treatment with a PICC line. She had blood clots in her arms secondary to her PICC lines and is now on Eliquis. She called her PCP who recommended further evaluation. - History of Current Complaint Chief Complaint: QUITAearoby Stated Complaint: LAM,CRAMPS ALL OVER NUMBNESS IN FINGERS Time Seen by Provider: 05/25/19 16:41 Hx Obtained From: Patient Hx Last Menstrual Period: tubal Onset/Duration: Gradual Onset, Lasting Weeks - 2 weeks Timing: Intermittent Episodes Lasting: - hours Pain Intensity: 8 Associated Signs & Symptoms: Positive: Anticoagulation Therapy, Weakness - generalized, no focal weakness.. Negative: Abdominal Pain, Back Pain, Confusion , Cough, Chest Pain, Decreased Responsiveness, Dizziness, Diarrhea, Dysuria, Diaphoresis, Fever, Hematemesis, Hemoptysis, Melena, Nausea, Palpitations, Syncope, SOB, Trauma, Vomiting Related Hx: Recent Hospitalization - E-coli infection, was treted with IV antibiotis. Right upper extremity DVT, on Eliquis. - Allergy/Home Medications Allergies/Adverse Reactions: Allergies Allergy/AdvReac Type Severity Reaction Status Date / Time albuterol Allergy Anaphylatic Verified 05/25/19 16:51 Shock benzonatate Allergy Nausea, Verified 05/25/19 16:51 shaky, dizzy codeine Allergy Anaphylatic Verified 05/25/19 16:51 Shock Home Medications: Home Medications Apixaban* [Eliquis*] 5 mg PO BID 05/25/19 [History Confirmed 05/25/19] Fluticasone-Salmeterol 250-50* [Advair Diskus 250-50*] 1 puff INH BID 05/25/19 [ History Confirmed 05/25/19] amLODIPine TAB* [Norvasc 5 mg TAB*] 5 mg PO DAILY 05/25/19 [History Confirmed ] PMH/Surg Hx/FS Hx/Imm Hx Cardiovascular History: Hypertension Respiratory History: Asthma - Surgical History Surgical History: Yes Surgery Procedure, Year, and Place: TUBAL LIGATION. CYST REMOVED FROM LEFT ARM - Family History Known Family History: Positive: Hypertension, Respiratory Disease Family History: non-contributory - Social History Occupation: Employed Full-time Alcohol Use: None Alcohol Amount: h/o ETOH abuse, none in 15 years Substance Use Type: None Smoking Status (MU): Light Every Day Tobacco Smoker Type: Cigarettes Amount Used/How Often: 1/2 ppd or less Length of Time of Smoking/Using Tobacco: since age 42 Household Exposure Type: Cigarettes - Immunization History Most Recent Influenza Vaccination: 2017 Review of Systems All Other Systems Reviewed And Are Negative: Yes Constitutional: Negative: Fever, Chills, Fatigue Skin: Negative: Rash, Bruising Eyes: Positive: Blurred Vision, Photophobia. Negative: Diplopia, Drainage, Eye Redness ENT: Positive: Ear Ache, Sinus Pain/Tenderness - frontal sinus. Negative: Sore Throat, Nasal Discharge, Sinus Congestion Respiratory: Positive: Cough - chronic secondary to smoking. Negative: Shortness Of Breath Cardiovascular: Negative: Palpitations, Chest Pain Gastrointestinal: Negative: Abdominal Pain, Vomiting, Diarrhea, Nausea Genitourinary: Negative: Dysuria, Hematuria, Frequency, Urgency Motor: Positive: Weakness - generalized. Negative: Decreased ROM Neurovascular: Negative: Decreased Sensation Musculoskeletal: Negative: Arthralgia, Calf Tenderness, Edema Neurological: Positive: Headache, Paresthesia - upper and lower legs Psychological: Positive: Negative Is Patient Immunocompromised?: No Physical Exam Triage Information Reviewed: Yes Appearance: Well-Appearing, No Pain Distress, Well-Nourished, Obese Vital Signs: Initial Vital Signs Temp 98.4 F 05/25/19 16:32 Pulse 80 05/25/19 16:32 Resp 18 05/25/19 16:32 BP 152/92 05/25/19 16:32 Pulse Ox 97 05/25/19 16:32 Vital Signs Reviewed: Yes ENT: Positive: Normal ENT inspection, Pharynx normal. Negative: Nasal congestion, Nasal drainage Dental Exam: Other - no teeth Neck: Positive: Supple, Nontender, No Lymphadenopathy Respiratory: Positive: Chest non-tender, Lungs clear, Normal breath sounds, No respiratory distress Cardiovascular: Positive: RRR, No Murmur, Pulses Normal Abdomen Description: Positive: Nontender, No Organomegaly, Soft. Negative: CVA Tenderness (R), CVA Tenderness (L) Musculoskeletal: Positive: Strength Intact, ROM Intact, No Edema Neurological: Positive: Alert, Muscle Tone Normal. Negative: Lethargic Skin: Negative: Rashes Diagnostics - Radiology No standard instances Radiology Interpretation Completed By: Radiologist Summary of Radiographic Findings: CT BRAIN. INDICATION: Headache with visual disturbance. COMPARISON: There are no relevant prior studies available for comparison. TECHNIQUE: Contiguous axial sections of the brain were obtained from the skull base to the. vertex without contrast. FINDINGS: There is no hemorrhagic focus, mass effect or midline shift. Grossly, the solares-white. matter differentiation is maintained. The ventricles are of conventional size and configuration. The basal cisterns are patent. There is no abnormal extra- axial collection. The globes and orbits are symmetric. The paranasal sinuses and mastoid air cells are. predominantly well aerated. IMPRESSION: No acute intracranial abnormality. Course/Dx - Course Course Of Treatment: No intracranial abnormality on CT, normal neurologic examination without focal deficits. - Diagnoses Provider Diagnosis: Headache, Malaise Discharge - Sign-Out/Discharge Documenting (check all that apply): Patient Departure All imaging exams completed and their final reports reviewed: Yes - Discharge Plan Condition: Stable Disposition: HOME Patient Education Materials: Acute Headache (ED) Referrals: No Primary Care Phys,NOPCP [Primary Care Provider] - Additional Instructions: Take Tylenol as needed for headache. Follow-up with your Primary Care Provider if your symptoms persist. If your headache worsens or you develop weakness of your arms, legs, slurred speech, call 911 and go to the Emergency Department. - Billing Disposition and Condition Condition: STABLE Disposition: Home
== END 2019-05-25 18:23 | disposition home or self-care (01) ==
LOC: UCCORT 16:27
DX: R53.81 Other malaise (principal); I74.8 Embolism and thrombosis of other arteries; Z79.01 Long term (current) use of anticoagulants; I10 Essential (primary) hypertension; J45.909 Unspecified asthma, uncomplicated; F17.210 Nicotine dependence, cigarettes, uncomplicated
CPT/HCPCS: 70450; 99211; G0463

== ENCOUNTER 2022-09-21 01:58 | Inpatient (IN) ==
[2022-09-21 02:36] LABS: ABS Basophils 0.1 10^3/ul (0-0.2); ABS Eosinophils 0.3 10^3/ul (0-0.6); ABS Lymphocytes 3.1 10^3/ul (1.0-4.8); ABS Monocytes 0.7 10^3/ul (0-0.8); ABS Neutrophils 4.3 10^3/ul (1.5-7.7); Eosinophil % 3.5 %; Hematocrit 40 % (35-47); Hemoglobin 12.8 g/dL (12.0-16.0); Lymphocyte % 36.5 %; Mean Corpuscular HGB Conc 32 g/dL (31-36); Mean Corpuscular Hemoglobin 28 pg (27-31); Mean Corpuscular Volume 87 fL (80-97); Mean Platelet Volume 8.8 fL (7.4-10.4); Nucleated Red Blood Cells % 0.1; Platelet Count 188 10^3/uL (150-450); Red Blood Count 4.58 10^6 /uL (3.70-4.87); Red Cell Distribution Width 15 % (10-15); White Blood Count 8.5 10^3/uL (3.5-10.8)
[2022-09-21] MEDS ORDERED: Heparin DRIP 25,000 UNITS BAG 25,000 UNITS/500 ML BAG IV SCH (02:45)
[2022-09-21 02:55] LABS: ALT 9 U/L (7-52); Albumin 3.5 g/dL (3.2-5.2); Albumin/Globulin Ratio 1.8 (1-3); Alkaline Phosphatase 105 U/L (35-149); Blood Urea Nitrogen 21 mg/dL (6-24); CO2 Carbon Dioxide 26 mmol/L (22-32); Calcium 7.9 mg/dL (8.6-10.3); Chloride 111 mmol/L (101-111); Globulin 1.9 g/dL (2-4); Glucose 108 mg/dL (70-100); Magnesium 1.9 mg/dL (1.9-2.7); Sodium 140 mmol/L (135-145); Total Protein 5.4 g/dL (6.4-8.9); eGFR CKD-EPI 73.9 (>60)
[2022-09-21 03:00] LABS: High Sens Troponin Baseline 7 pg/mL (<15)
[2022-09-21] MEDS ORDERED: Heparin 5000 UNITS/ML 1 mL VIAL IV SCH (03:00)
[2022-09-21 03:03] LABS: Anion Gap 3 mmol/L (2-11)
[2022-09-21 03:08] LABS: TSH Ultra Thyroid Stim Horm 1.39 mcIU/mL (0.34-5.60)
[2022-09-21] MEDS ORDERED: Nitroglycerin 0.3 mg TAB SL PRN (03:45)
[2022-09-21 05:11] LABS: Alcohol, S < 13 mg/dL (<13); Cholesterol 187 mg/dL; HDL Cholesterol 58.4 mg/dL; LDL Cholesterol 115 mg/dL; Triglycerides 67 mg/dL
[2022-09-21] MEDS ORDERED: FLUTICASONE SALMETEROL INH SCH ×2 (07:00→08:40)
[2022-09-21] MEDS ORDERED: Nicotine PATCH 7 MG/24 HR PATCH TRANSDERM SCH (08:00)
[2022-09-21 09:22] LABS: ABS Basophils 0.1 10^3/ul (0-0.2); ABS Eosinophils 0.3 10^3/ul (0-0.6); ABS Lymphocytes 2.3 10^3/ul (1.0-4.8); ABS Monocytes 0.7 10^3/ul (0-0.8); ABS Neutrophils 4.8 10^3/ul (1.5-7.7); Eosinophil % 3.2 %; Hematocrit 42 % (35-47); Hemoglobin 13.6 g/dL (12.0-16.0); Lymphocyte % 28.5 %; Mean Corpuscular HGB Conc 33 g/dL (31-36); Mean Corpuscular Hemoglobin 29 pg (27-31); Mean Corpuscular Volume 87 fL (80-97); Mean Platelet Volume 8.4 fL (7.4-10.4); Platelet Count 176 10^3/uL (150-450); Red Blood Count 4.79 10^6 /uL (3.70-4.87); Red Cell Distribution Width 15 % (10-15); White Blood Count 8.2 10^3/uL (3.5-10.8)
[2022-09-21] MEDS ORDERED: Regadenoson 0.4 MG/5 ML SYRINGE ONE (12:36)
[2022-09-21 14:24] VITALS: BP 00/00
[2022-09-21] MEDS ORDERED: Aspirin EC 81 mg TAB.EC (enteric coated) PO SCH (21:00)
== END 2022-09-21 14:23 | disposition home or self-care (01) | DRG 198 ==
LOC: ED 01:58 → EDHOLD 03:41 → SUATTDRO 03:41 → EDHOLD 14:22
PROVIDERS: ADMIT Internal Medicine; ATTEND Hospitalist